=== PATIENT | female | born 1940 | race African-American/Black ===

== ENCOUNTER 2017-06-04 15:33 | Day surgery (SDC) | payer MEDICARE, MEDICAID ==
[2017-06-04 15:46] VITALS: BP 142/65; TEMP 97.9
[2017-06-04] MEDS ORDERED: Epoetin (ESRD) 20,000 UNITS/ML SC SCH (16:00)
== END 2017-06-04 16:14 | disposition home or self-care (01) ==
LOC: ONC/OP 15:33
PROVIDERS: ATTEND Internal Medicine Medical Oncology
DX: D63.1 Anemia in chronic kidney disease (principal); N18.3 Chronic kidney disease, stage 3 (moderate); I13.0 Hypertensive heart and chronic kidney disease with heart failure and stage 1 through stage 4 chronic kidney disease, or unspecified chronic kidney disease; E11.22 Type 2 diabetes mellitus with diabetic chronic kidney disease; I50.32 Chronic diastolic (congestive) heart failure; M32.9 Systemic lupus erythematosus, unspecified; E78.00 Pure hypercholesterolemia, unspecified; Z79.899 Other long term (current) drug therapy; Z79.82 Long term (current) use of aspirin; Z79.4 Long term (current) use of insulin
CPT/HCPCS: 96372; Q4081

== ENCOUNTER 2017-06-25 13:55 | Day surgery (SDC) | payer MEDICARE, MEDICAID ==
[2017-06-25 14:15] VITALS: BP 172/76; TEMP 98.1
[2017-06-25] MEDS ORDERED: Epoetin (NON-ESRD) 20,000 UNITS/ML ML SC SCH (14:15)
== END 2017-06-25 14:17 | disposition home or self-care (01) ==
LOC: ONC/OP 13:55
PROVIDERS: ATTEND Internal Medicine Medical Oncology
DX: E11.22 Type 2 diabetes mellitus with diabetic chronic kidney disease (principal); I13.0 Hypertensive heart and chronic kidney disease with heart failure and stage 1 through stage 4 chronic kidney disease, or unspecified chronic kidney disease; N18.3 Chronic kidney disease, stage 3 (moderate); I50.30 Unspecified diastolic (congestive) heart failure; D63.1 Anemia in chronic kidney disease; E03.9 Hypothyroidism, unspecified; M32.9 Systemic lupus erythematosus, unspecified; Z79.82 Long term (current) use of aspirin; Z79.4 Long term (current) use of insulin; Z79.52 Long term (current) use of systemic steroids; Z79.899 Other long term (current) drug therapy; Z98.890 Other specified postprocedural states
CPT/HCPCS: 96372; J0885

== ENCOUNTER 2017-08-05 14:08 | Day surgery (SDC) | payer MEDICARE, MEDICAID ==
[2017-08-05] MEDS ORDERED: Epoetin (ESRD) 20,000 UNITS/ML SC SCH (14:45)
[2017-08-05 14:54] VITALS: BP 169/77; TEMP 97.6
== END 2017-08-05 14:41 | disposition home or self-care (01) ==
LOC: ONC/OP 14:08
PROVIDERS: ATTEND Internal Medicine Medical Oncology
DX: E11.22 Type 2 diabetes mellitus with diabetic chronic kidney disease (principal); I13.0 Hypertensive heart and chronic kidney disease with heart failure and stage 1 through stage 4 chronic kidney disease, or unspecified chronic kidney disease; I50.32 Chronic diastolic (congestive) heart failure; N18.3 Chronic kidney disease, stage 3 (moderate); D63.1 Anemia in chronic kidney disease
CPT/HCPCS: 96372; Q4081

== ENCOUNTER 2017-09-03 14:54 | Day surgery (SDC) | payer MEDICARE, MEDICAID ==
[2017-09-03 15:13] VITALS: BP 145/67; TEMP 98
[2017-09-03] MEDS ORDERED: Epoetin (ESRD) 20,000 UNITS/ML SC SCH (15:15)
== END 2017-09-03 16:09 | disposition home or self-care (01) ==
LOC: ONC/OP 14:54
PROVIDERS: ATTEND Internal Medicine Medical Oncology
DX: N18.3 Chronic kidney disease, stage 3 (moderate) (principal); D63.1 Anemia in chronic kidney disease
CPT/HCPCS: 36415; 82728; 83540; 83550; 96372; Q4081

== ENCOUNTER 2017-09-24 14:43 | Day surgery (SDC) | payer MEDICARE, MEDICAID ==
[2017-09-24] MEDS ORDERED: Epoetin (ESRD) 20,000 UNITS/ML SC SCH (15:00)
== END 2017-09-24 15:12 | disposition home or self-care (01) ==
LOC: ONC/OP 14:43
PROVIDERS: ATTEND Internal Medicine Medical Oncology
DX: I12.9 Hypertensive chronic kidney disease with stage 1 through stage 4 chronic kidney disease, or unspecified chronic kidney disease (principal); E11.22 Type 2 diabetes mellitus with diabetic chronic kidney disease; N18.3 Chronic kidney disease, stage 3 (moderate); D63.1 Anemia in chronic kidney disease; M32.9 Systemic lupus erythematosus, unspecified; E78.00 Pure hypercholesterolemia, unspecified; E89.0 Postprocedural hypothyroidism; Z98.890 Other specified postprocedural states
CPT/HCPCS: 96372; Q4081

== ENCOUNTER 2017-10-14 14:13 | Day surgery (SDC) | payer MEDICARE, MEDICAID ==
[2017-10-14 14:30] VITALS: BP 126/61; TEMP 97.5
[2017-10-14] MEDS ORDERED: Epoetin (ESRD) 20,000 UNITS/ML SC SCH (14:30)
== END 2017-10-14 14:47 | disposition home or self-care (01) ==
LOC: ONC/OP 14:13
PROVIDERS: ATTEND Internal Medicine Medical Oncology
DX: I13.2 Hypertensive heart and chronic kidney disease with heart failure and with stage 5 chronic kidney disease, or end stage renal disease (principal); E11.22 Type 2 diabetes mellitus with diabetic chronic kidney disease; I50.9 Heart failure, unspecified; N18.6 End stage renal disease; D63.1 Anemia in chronic kidney disease; E03.9 Hypothyroidism, unspecified; E78.5 Hyperlipidemia, unspecified; Z79.4 Long term (current) use of insulin; Z79.82 Long term (current) use of aspirin; Z79.899 Other long term (current) drug therapy; Z99.2 Dependence on renal dialysis
CPT/HCPCS: 96372; Q4081

== ENCOUNTER 2017-11-04 13:50 | Day surgery (SDC) | payer MEDICARE, MEDICAID ==
[2017-11-04] MEDS ORDERED: Epoetin (ESRD) 20,000 UNITS/ML SC SCH (14:15)
== END 2017-11-04 14:37 | disposition home or self-care (01) ==
LOC: ONC/OP 13:50
PROVIDERS: ATTEND Internal Medicine Medical Oncology
DX: I12.0 Hypertensive chronic kidney disease with stage 5 chronic kidney disease or end stage renal disease (principal); E11.22 Type 2 diabetes mellitus with diabetic chronic kidney disease; N18.6 End stage renal disease; E03.9 Hypothyroidism, unspecified
CPT/HCPCS: 96372; Q4081

== ENCOUNTER 2017-12-02 14:25 | Day surgery (SDC) | payer MEDICARE, MEDICAID ==
[2017-12-02 14:37] VITALS: BP 161/71; TEMP 97.9
[2017-12-02] MEDS ORDERED: Epoetin 40,000 UNITS/ML VIAL ONE (14:42)
[2017-12-02] MEDS ORDERED: Epoetin 40,000 UNITS/ML VIAL SC SCH (15:15)
== END 2017-12-02 14:43 | disposition home or self-care (01) ==
LOC: ONC/OP 14:25
PROVIDERS: ATTEND Internal Medicine Medical Oncology
DX: I13.0 Hypertensive heart and chronic kidney disease with heart failure and stage 1 through stage 4 chronic kidney disease, or unspecified chronic kidney disease (principal); E11.22 Type 2 diabetes mellitus with diabetic chronic kidney disease; N18.3 Chronic kidney disease, stage 3 (moderate); I50.33 Acute on chronic diastolic (congestive) heart failure; D63.1 Anemia in chronic kidney disease; M32.9 Systemic lupus erythematosus, unspecified; Z79.82 Long term (current) use of aspirin; Z79.4 Long term (current) use of insulin; Z79.52 Long term (current) use of systemic steroids; Z79.899 Other long term (current) drug therapy
CPT/HCPCS: 96372; J0885

== ENCOUNTER 2017-12-23 14:13 | Day surgery (SDC) | payer MEDICARE, MEDICAID ==
[2017-12-23 14:20] VITALS: BP 161/71; TEMP 97.8
[2017-12-23] MEDS ORDERED: Epoetin 40,000 UNITS/ML VIAL SC SCH (14:30)
== END 2017-12-23 14:23 | disposition home or self-care (01) ==
LOC: ONC/OP 14:13
PROVIDERS: ATTEND Internal Medicine Medical Oncology
DX: I12.9 Hypertensive chronic kidney disease with stage 1 through stage 4 chronic kidney disease, or unspecified chronic kidney disease (principal); E11.22 Type 2 diabetes mellitus with diabetic chronic kidney disease; N18.3 Chronic kidney disease, stage 3 (moderate); D63.1 Anemia in chronic kidney disease; E03.9 Hypothyroidism, unspecified; E78.5 Hyperlipidemia, unspecified
CPT/HCPCS: 36415; 82728; 96372; J0885

== ENCOUNTER 2018-01-02 07:03 | Emergency (ER) | payer MEDICARE, MEDICAID ==
--- NOTE | 2018-01-02 08:06 | CT ---
BRAIN CT WITHOUT IV CONTRAST: Date: 01/02/18 HISTORY: 77-year-old female with history of trauma, fell while using walker, fell straight backward. Soft tiss ue injury to back of patient's head. COMPARISON: 05/15/16. FINDINGS: Stable appearing atrophy and chronic white matter ischemic change. No focal mass or midline shift. No intra or extra-axial hemorrhage. Left posterior scalp swelling. IMPRESSION: Scalp swelling. Stable atrophy and chronic white matter ischemic change. No mass or bleed. POS: [facility]
[2018-01-02] MEDS ORDERED: Bacitracin Zinc 1 Packet ONE (08:23)
== END 2018-01-02 08:35 | disposition home or self-care (01) ==
LOC: ERS 07:03
DX: S00.03XA Contusion of scalp, initial encounter (principal); E78.00 Pure hypercholesterolemia, unspecified; E03.9 Hypothyroidism, unspecified; W01.0XXA Fall on same level from slipping, tripping and stumbling without subsequent striking against object, initial encounter; Y93.01 Activity, walking, marching and hiking
CPT/HCPCS: 70450

== ENCOUNTER 2018-01-07 15:26 | Outpatient (CLI) | payer MEDICARE, MEDICAID | END 2018-01-07 15:27 | disposition home or self-care (01) | LOC: BICMAMMO 15:26 | PROVIDERS: ATTEND Family Medicine | DX: Z12.31 Encounter for screening mammogram for malignant neoplasm of breast (principal); Z80.3 Family history of malignant neoplasm of breast | CPT/HCPCS: 77063; 77067 ==

== ENCOUNTER 2018-01-13 14:03 | Day surgery (SDC) | payer MEDICARE, MEDICAID ==
[2018-01-13] MEDS ORDERED: Epoetin 40,000 UNITS/ML VIAL ONE (14:13)
[2018-01-13 14:22] VITALS: BP 132/62; TEMP 97.5
[2018-01-13] MEDS ORDERED: Epoetin 40,000 UNITS/ML VIAL SC SCH (14:30)
== END 2018-01-13 14:22 | disposition home or self-care (01) ==
LOC: ONC/OP 14:03
PROVIDERS: ATTEND Internal Medicine Medical Oncology
DX: I12.9 Hypertensive chronic kidney disease with stage 1 through stage 4 chronic kidney disease, or unspecified chronic kidney disease (principal); E11.22 Type 2 diabetes mellitus with diabetic chronic kidney disease; N18.3 Chronic kidney disease, stage 3 (moderate); D63.1 Anemia in chronic kidney disease; E03.9 Hypothyroidism, unspecified; E78.5 Hyperlipidemia, unspecified; Z98.890 Other specified postprocedural states
CPT/HCPCS: 96372; J0885

== ENCOUNTER 2018-02-03 14:00 | Day surgery (SDC) | payer MEDICARE, MEDICAID ==
[2018-02-03] MEDS ORDERED: Epoetin 40,000 UNITS/ML VIAL SC SCH (14:15)
[2018-02-03 14:16] VITALS: BP 162/72; TEMP 97.6
[2018-02-03] MEDS ORDERED: Epoetin 40,000 UNITS/ML VIAL ONE (14:21)
== END 2018-02-03 14:17 | disposition home or self-care (01) ==
LOC: ONC/OP 14:00
PROVIDERS: ATTEND Internal Medicine Medical Oncology
DX: I12.9 Hypertensive chronic kidney disease with stage 1 through stage 4 chronic kidney disease, or unspecified chronic kidney disease (principal); E11.22 Type 2 diabetes mellitus with diabetic chronic kidney disease; N18.3 Chronic kidney disease, stage 3 (moderate); D63.1 Anemia in chronic kidney disease; E03.9 Hypothyroidism, unspecified; E78.5 Hyperlipidemia, unspecified; Z79.84 Long term (current) use of oral hypoglycemic drugs; Z79.899 Other long term (current) drug therapy
CPT/HCPCS: 96372; J0885

== ENCOUNTER 2018-02-24 14:03 | Day surgery (SDC) | payer MEDICARE, MEDICAID ==
[2018-02-24] MEDS ORDERED: Epoetin 40,000 UNITS/ML VIAL SC SCH (14:30)
[2018-02-24 16:01] VITALS: BP 134/61; TEMP 98.1
== END 2018-02-24 16:07 | disposition home or self-care (01) ==
LOC: ONC/OP 14:03
PROVIDERS: ATTEND Internal Medicine Medical Oncology
DX: N18.3 Chronic kidney disease, stage 3 (moderate) (principal); D63.1 Anemia in chronic kidney disease
CPT/HCPCS: 96372; J0885

== ENCOUNTER 2018-03-24 12:25 | Day surgery (SDC) | payer MEDICARE, MEDICAID ==
[2018-03-24] MEDS ORDERED: Epoetin 40,000 UNITS/ML VIAL ONE (12:34)
[2018-03-24 14:01] VITALS: BP 133/63; TEMP 97.7
== END 2018-03-24 14:18 | disposition home or self-care (01) ==
LOC: ONC/OP 12:25
PROVIDERS: ATTEND Internal Medicine Medical Oncology
DX: I12.9 Hypertensive chronic kidney disease with stage 1 through stage 4 chronic kidney disease, or unspecified chronic kidney disease (principal); E11.22 Type 2 diabetes mellitus with diabetic chronic kidney disease; N18.3 Chronic kidney disease, stage 3 (moderate); D63.1 Anemia in chronic kidney disease; I25.10 Atherosclerotic heart disease of native coronary artery without angina pectoris; L93.0 Discoid lupus erythematosus; E78.2 Mixed hyperlipidemia; E03.9 Hypothyroidism, unspecified; Z79.899 Other long term (current) drug therapy
CPT/HCPCS: 96372; J0885

== ENCOUNTER 2018-04-14 13:19 | Day surgery (SDC) | payer MEDICARE, MEDICAID ==
[2018-04-14] MEDS ORDERED: Epoetin 40,000 UNITS/ML VIAL SC SCH (13:30)
[2018-04-14 14:14] VITALS: BP 138/91; TEMP 97.9
== END 2018-04-14 14:49 | disposition home or self-care (01) ==
LOC: ONC/OP 13:19
PROVIDERS: ATTEND Internal Medicine Medical Oncology
DX: N18.3 Chronic kidney disease, stage 3 (moderate) (principal); D63.1 Anemia in chronic kidney disease
CPT/HCPCS: 96372; J0885

== ENCOUNTER 2018-05-05 13:47 | Day surgery (SDC) | payer MEDICARE, MEDICAID ==
[2018-05-05] MEDS ORDERED: Epoetin 40,000 UNITS/ML VIAL SC SCH (14:15)
== END 2018-05-05 14:29 | disposition home or self-care (01) ==
LOC: ONC/OP 13:47
PROVIDERS: ATTEND Internal Medicine Medical Oncology
DX: N18.3 Chronic kidney disease, stage 3 (moderate) (principal); D63.1 Anemia in chronic kidney disease
CPT/HCPCS: 96372; J0885

== ENCOUNTER 2018-05-26 14:10 | Day surgery (SDC) | payer MEDICARE, MEDICAID ==
[2018-05-26] MEDS ORDERED: Epoetin 40,000 UNITS/ML VIAL SC SCH (14:30)
== END 2018-05-26 15:09 | disposition home or self-care (01) ==
LOC: ONC/OP 14:10
PROVIDERS: ATTEND Internal Medicine Medical Oncology
DX: N18.3 Chronic kidney disease, stage 3 (moderate) (principal); D63.1 Anemia in chronic kidney disease
CPT/HCPCS: 96372; J0885

== ENCOUNTER 2018-06-05 09:32 | Outpatient (CLI) | payer MEDICARE, MEDICAID ==
--- NOTE | 2018-06-05 13:03 | MRI ---
MRI BRAIN WITHOUT CONTRAST: Date: 06/05/18 HISTORY: Hypersomnia, unspecified; dizziness and giddiness. FINDINGS: Comparison made with exam of 03/28/16. There are changes of cortical atrophy and mild chronic small vessel ischemic disease. No restricted d iffusion is seen. No evidence of territorial infarction, midline shift, or abnormal extra-axial fluid collections are seen. The ventricular size is appropriate and the basilar cisterns are patent. Visua lized paranasal sinuses and mastoid air cells are well aerated. IMPRESSION: Chronic changes. No evidence of acute intracranial process. POS: [facility]
== END 2018-06-05 09:33 | disposition home or self-care (01) ==
LOC: BICMRI 09:32
PROVIDERS: ATTEND Family Medicine
DX: G47.10 Hypersomnia, unspecified (principal); R42 Dizziness and giddiness
CPT/HCPCS: 70551

== ENCOUNTER 2018-06-22 17:31 | Emergency (ER) | payer MEDICARE, MEDICAID ==
[2018-06-22 18:08] LABS: #Basophils 0.1 thou/uL (0.0-0.2); #Eosinphils 0.1 thou/uL (0.0-0.7); #Lymphocytes 2.4 thou/uL (1.20-3.40); #Monocytes 0.7 thou/uL (0.11-0.59); #Neutrophils 4.4 thou/uL (1.40-6.50); %Basophils 0.8 % (0.0-1.0); %Eosinophils 1.9 % (0.0-10.0); %Lymphocytes 31.4 % (21.0-51.0); %Monocytes 9.2 % (0.0-10.0); %Neutrophils 56.7 % (42.0-75.0); Hemoglobin 11.5 g/dL (12.0-16.0); Mean Corpuscular HGB CONC 31.2 g/dL (32.0-36.0); Mean Corpuscular Hemoglobin 27.3 pg (27.0-31.0); Mean Corpuscular Volume 87.5 fL (78.0-98.0); Mean Platelet Volume 8.3 fL (7.4-10.4); Platelet Count 235 thou/uL (130-400); RBC Distribution Width 13.8 % (11.5-14.5); Red Blood Cell (RBC) Count 4.19 mill/uL (4.20-5.40); White Blood Cell (WBC) Count 7.7 thou/uL (4.8-10.8)
[2018-06-22 18:29] LABS: ALT (SGPT) 19 U/L (8-55); AST (SGOT) 15 U/L (5-34); Albumin 3.9 g/dL (3.4-4.8); Alkaline Phosphatase 55 U/L (40-150); Anion Gap 15 mmol/L (10-20); BUN (Urea Nitrogen) 41 mg/dL (9.8-20.1); Bilirubin, Total 0.4 mg/dL (0.2-1.2); CK (CPK) 100 U/L (29-168); Calc. Creatinine Clearance 0 mL/min (70-130); Calcium 9.2 mg/dL (7.8-10.44); Carbon Dioxide 20 mmol/L (23-31); Chloride 106 mmol/L (98-107); Estimated GFR-MDRD 24; Globulin 3.5 g/dL (2.4-3.5); Glucose 140 mg/dL (83-110); Potassium 4.5 mmol/L (3.5-5.1); Protein, Total 7.4 g/dL (6.0-8.3); Sodium 136 mmol/L (136-145)
[2018-06-22 18:34] LABS: CKMB 0.9 ng/mL (0-6.6); Troponin I Less than 0.010 ng/mL (< 0.028)
[2018-06-22 18:38] LABS: Bilirubin Negative (Negative); Blood, Urine Trace (Negative); Clarity CLEAR (Clear); Glucose, Urine (Dipstick) Negative (Negative); Leukocyte Negative (Negative); Nitrite Negative (Negative); Protein, Urine (Dipstick) 100 mg/dL (Neg-Trace); Specific Gravity, Urine 1.007 (1.002-1.036); Urobilinogen 0.2 mg/dL (0.2-1.0)
[2018-06-22 18:44] LABS: Bacteria/HPF None Seen HPF (None Seen); Hyaline Casts/LPF 0-3 HYALINE CAST LPF (0-3 Hyaline); Pathc Cast-AUWi Flag 0.14 (0-2.49); Squamous Epithelial 0-3 HPF (0-3); WBC/HPF 0-3 HPF (0-3)
== END 2018-06-22 19:28 | disposition home or self-care (01) ==
LOC: ERS 17:31
DX: I12.9 Hypertensive chronic kidney disease with stage 1 through stage 4 chronic kidney disease, or unspecified chronic kidney disease (principal); N18.9 Chronic kidney disease, unspecified; E11.9 Type 2 diabetes mellitus without complications; E03.9 Hypothyroidism, unspecified; Z79.899 Other long term (current) drug therapy
CPT/HCPCS: 36415; 80053; 81003; 81015; 82550; 82553; 83880; 84484; 85025; 93005

== ENCOUNTER 2018-07-07 13:46 | Day surgery (SDC) | payer MEDICARE, MEDICAID ==
[2018-07-07] MEDS ORDERED: Epoetin 40,000 UNITS/ML VIAL SC SCH (14:00)
== END 2018-07-07 14:24 | disposition home or self-care (01) ==
LOC: ONC/OP 13:46
PROVIDERS: ATTEND Internal Medicine Medical Oncology
DX: N18.3 Chronic kidney disease, stage 3 (moderate) (principal); D63.1 Anemia in chronic kidney disease; Z79.52 Long term (current) use of systemic steroids; Z79.82 Long term (current) use of aspirin; Z79.899 Other long term (current) drug therapy
CPT/HCPCS: 96372; J0885

== ENCOUNTER 2018-07-28 14:01 | Day surgery (SDC) | payer MEDICARE ==
[2018-07-28] MEDS ORDERED: Epoetin 40,000 UNITS/ML VIAL SC SCH (14:30)
== END 2018-07-28 14:41 | disposition home or self-care (01) ==
LOC: ONC/OP 14:01
PROVIDERS: ATTEND Internal Medicine Medical Oncology
DX: N18.3 Chronic kidney disease, stage 3 (moderate) (principal); D63.1 Anemia in chronic kidney disease
CPT/HCPCS: 96372; J0885

== ENCOUNTER 2018-08-18 14:18 | Day surgery (SDC) | payer MEDICARE ==
[2018-08-18] MEDS ORDERED: Epoetin 40,000 UNITS/ML VIAL SC SCH (15:00)
[2018-08-18 17:04] VITALS: BP 165/72; TEMP 97.7
== END 2018-08-18 17:04 | disposition home or self-care (01) ==
LOC: ONC/OP 14:18
PROVIDERS: ATTEND Internal Medicine Medical Oncology
DX: N18.3 Chronic kidney disease, stage 3 (moderate) (principal); D63.1 Anemia in chronic kidney disease; Z79.82 Long term (current) use of aspirin; Z79.52 Long term (current) use of systemic steroids; Z79.899 Other long term (current) drug therapy
CPT/HCPCS: 96372; J0885

== ENCOUNTER 2018-09-15 13:55 | Day surgery (SDC) | payer MEDICARE, MEDICAID ==
[2018-09-15] MEDS ORDERED: Epoetin 40,000 UNITS/ML VIAL ONE (13:58)
[2018-09-15 14:02] VITALS: BP 138/63; TEMP 98.4
== END 2018-09-15 14:24 | disposition home or self-care (01) ==
LOC: ONC/OP 13:55
PROVIDERS: ATTEND Internal Medicine Medical Oncology
DX: N18.3 Chronic kidney disease, stage 3 (moderate) (principal); D63.1 Anemia in chronic kidney disease
CPT/HCPCS: 36415; 82728; 83540; 83550; 96372; J0885

== ENCOUNTER 2018-10-06 14:37 | Day surgery (SDC) | payer MEDICARE, MEDICAID ==
[2018-10-06 15:09] VITALS: BP 154/72; TEMP 97.8
[2018-10-06] MEDS ORDERED: Epoetin 40,000 UNITS/ML VIAL SC SCH (15:30)
--- NOTE | 2018-10-06 16:25 | RAD ---
TWO VIEW CHEST: History: Anemia. FINDINGS: Lung webster are clear. Heart and mediastinum appear unremarkable. Mild aortic calcification. Vascular markings normal. Osseous structures unremarkable with mild degenerative changes at both shoulders. T here is a wedge compression deformity involving a lower thoracic vertebra, probably T12. IMPRESSION: 1. No acute lung process. 2. Wedge compression deformity at T12. 3. Degenerative changes at the shoulder, more prominent on the left. POS: [facility]
== END 2018-10-06 18:33 | disposition home or self-care (01) ==
LOC: ONC/OP 14:37
PROVIDERS: ATTEND Internal Medicine Medical Oncology
DX: N18.3 Chronic kidney disease, stage 3 (moderate) (principal); D63.1 Anemia in chronic kidney disease; M19.012 Primary osteoarthritis, left shoulder; M19.011 Primary osteoarthritis, right shoulder; M43.8X4 Other specified deforming dorsopathies, thoracic region; Z79.82 Long term (current) use of aspirin; Z79.52 Long term (current) use of systemic steroids; Z79.84 Long term (current) use of oral hypoglycemic drugs; Z79.899 Other long term (current) drug therapy
CPT/HCPCS: 71046; 80053; 82248; 83615; 84100; 84550; 96372; J0885

== ENCOUNTER 2018-10-29 15:57 | Day surgery (SDC) | payer MEDICARE, MEDICAID ==
[2018-10-29] MEDS ORDERED: Epoetin 40,000 UNITS/ML VIAL SC SCH (16:15)
== END 2018-10-29 16:28 | disposition home or self-care (01) ==
LOC: ONC/OP 15:57
PROVIDERS: ATTEND Internal Medicine Medical Oncology
DX: N18.3 Chronic kidney disease, stage 3 (moderate) (principal); D63.1 Anemia in chronic kidney disease
CPT/HCPCS: 80053; 82248; 83615; 84100; 84550; 96372; J0885

== ENCOUNTER 2018-11-19 13:50 | Day surgery (SDC) | payer MEDICARE, MEDICAID ==
[2018-11-19] MEDS ORDERED: Epoetin 40,000 UNITS/ML VIAL ONE (13:53)
[2018-11-19] MEDS ORDERED: Epoetin 40,000 UNITS/ML VIAL SC SCH (14:30)
== END 2018-11-19 14:05 | disposition home or self-care (01) ==
LOC: ONC/OP 13:50
PROVIDERS: ATTEND Internal Medicine Medical Oncology
DX: N18.3 Chronic kidney disease, stage 3 (moderate) (principal); D63.1 Anemia in chronic kidney disease
CPT/HCPCS: 96372; J0885

== ENCOUNTER 2018-12-15 14:21 | Day surgery (SDC) | payer MEDICARE, MEDICAID ==
[2018-12-15] MEDS ORDERED: Epoetin 40,000 UNITS/ML VIAL SC SCH (14:30)
[2018-12-15 14:48] VITALS: BP 134/63
== END 2018-12-15 14:48 | disposition home or self-care (01) ==
LOC: ONC/OP 14:21
PROVIDERS: ATTEND Internal Medicine Medical Oncology
DX: N18.3 Chronic kidney disease, stage 3 (moderate) (principal); D63.1 Anemia in chronic kidney disease; Z79.52 Long term (current) use of systemic steroids; Z79.4 Long term (current) use of insulin; Z79.82 Long term (current) use of aspirin
CPT/HCPCS: 96372; J0885

== ENCOUNTER 2018-12-21 10:58 | Outpatient (CLI) | payer MEDICARE, MEDICAID | END 2018-12-21 10:59 | disposition home or self-care (01) | PROVIDERS: ATTEND Family Medicine | DX: I69.891 Dysphagia following other cerebrovascular disease (principal); R13.12 Dysphagia, oropharyngeal phase | CPT/HCPCS: 74230 ==

== ENCOUNTER 2018-12-21 14:12 | Outpatient (CLI) | payer MEDICARE, MEDICAID ==
--- NOTE | 2018-12-21 15:33 | MMO ---
Bilateral MAMMO Bilat Diag DDI+JOLENE. CLINICAL HISTORY: Patient is 78 years old and is seen for diagnostic exam and in the right breast. The patient has the following family history of breast cancer: paternal aunt. The patient has no personal history of cancer. The patient has a history of bilateral Excisional Biopsy at age 46 - benign. VIEWS: The views performed were: bilateral craniocaudal with tomosynthesis; bilateral mediolateral oblique with tomosynthesis; bilateral mediolateral; left mediolateral oblique; and right exaggerated craniocaudal. FILMS COMPARED: The present examination has been compared to prior imaging studies performed at [facility] on 12/09/2007, 12/16/2007, 12/16/2008, 12/18/2009, 12/23/2011, 12/23/2012, 12/24/2013, 12/26/2014, 12/28/2014, 07/26/2015, 01/05/2016, 01/06/2017, 01/07/2018 and 12/21/2018, and at [facility] on 12/30/2001 and 09/30/2003. MAMMOGRAM FINDINGS: There are scattered fibroglandular densities. Finding 1: There are a stable round masses with associated coarse popcorn-like calcifications seen in the right breast. Ultrasound shows masses with calcifications in region of palpable abnormality. Finding 2: There are stable benign appearing calcifications seen in both breasts. Finding 3: There is a stable mass seen in the left breast. There are no suspicious masses, suspicious calcifications, or new areas of architectural distortion. IMPRESSION: THERE IS NO MAMMOGRAPHIC EVIDENCE OF MALIGNANCY. A ROUTINE FOLLOW-UP MAMMOGRAM IN 1 YEAR IS RECOMMENDED. 3BTHE RESULTS OF THIS EXAM WERE SENT TO THE PATIENT.0B ACR BI-RADS Category 2 - Benign finding MAMMOGRAPHY NOTE: 1. A negative mammogram report should not delay a biopsy if a dominant of clinically suspicious mass is present. 2. Approximately 10% to 15% of breast cancers are not detected by mammography. 3. Adenosis and dense breasts may obscure an underlying neoplasm.
--- NOTE | 2018-12-21 15:57 | ULT ---
LIMITED ULTRASOUND RIGHT BREAST: Date: 12-21-18 History: Palpable abnormalities right breast. Patient with recent history of weight loss. Comparison: Mammograms on 12-21-18, as well as 01-06-17 in addition to multiple prior mammograms. FINDINGS: There are hypoechoic masses with associated echogenic shadowing foci within each mass most compatible with calcifications seen at the 10 o'clock position right breast. The more posterior mass measures 1.5 cm in maximal dimension with mass more anteriorly measuring approximately 1.4 cm in maximal dimen june. These masses, with associated calcifications correlate with findings on mammogram. Findings on mammographic evaluation are unchanged when compared to multiple prior mammograms suggesting benign fi ndings. No additional mass is seen in the region of the palpable abnormality. IMPRESSION: BIRADS category 2 - benign findings. Routine annual mammographic screening is recommended. POS: [facility]
== END 2018-12-21 14:13 | disposition home or self-care (01) ==
LOC: BICMAMMO 14:12
PROVIDERS: ATTEND Family Medicine
DX: N63.10 Unspecified lump in the right breast, unspecified quadrant (principal); Z80.3 Family history of malignant neoplasm of breast
CPT/HCPCS: 76642; 77066; G0279

== ENCOUNTER 2019-01-07 15:05 | Day surgery (SDC) | payer MEDICARE, MEDICAID ==
[2019-01-07] MEDS ORDERED: EPOETIN ALFA-EPBX (ESRD) 40,000 UNIT/ML VIAL SC SCH (15:30)
[2019-01-07 15:32] VITALS: BP 192/86; TEMP 97.4
== END 2019-01-07 15:33 | disposition home or self-care (01) ==
LOC: ONC/OP 15:05
PROVIDERS: ATTEND Internal Medicine Medical Oncology
DX: N18.3 Chronic kidney disease, stage 3 (moderate) (principal); D63.1 Anemia in chronic kidney disease
CPT/HCPCS: 82728; 96372

== ENCOUNTER 2019-01-27 14:04 | Day surgery (SDC) | payer MEDICARE, MEDICAID ==
[2019-01-27] MEDS ORDERED: Epoetin 40,000 UNITS/ML VIAL ONE (14:10)
[2019-01-27 14:13] VITALS: BP 125/60; TEMP 97.8
[2019-01-27] MEDS ORDERED: EPOETIN ALFA-EPBX (ESRD) 40,000 UNIT/ML VIAL SC SCH (14:15)
[2019-01-27] MEDS ORDERED: EPOETIN ALFA-EPBX (ESRD) 40,000 UNIT/ML VIAL IVP ONE (14:58)
== END 2019-01-27 16:24 | disposition home or self-care (01) ==
LOC: ONC/OP 14:04
PROVIDERS: ATTEND Internal Medicine Medical Oncology
DX: N18.3 Chronic kidney disease, stage 3 (moderate) (principal); D63.1 Anemia in chronic kidney disease
CPT/HCPCS: 96372; J0885

== ENCOUNTER 2019-02-16 13:55 | Day surgery (SDC) | payer MEDICARE, MEDICAID ==
[2019-02-16 14:09] VITALS: BP 136/62; TEMP 97.5
[2019-02-16] MEDS ORDERED: EPOETIN ALFA-EPBX (NON-ESRD) 40,000 UNIT/ML VIAL SC SCH (14:15)
[2019-02-16] MEDS ORDERED: EPOETIN ALFA-EPBX (ESRD) 40,000 UNIT/ML VIAL SC SCH (14:30)
== END 2019-02-16 14:53 | disposition home or self-care (01) ==
LOC: ONC/OP 13:55
PROVIDERS: ATTEND Internal Medicine Medical Oncology
DX: N18.3 Chronic kidney disease, stage 3 (moderate) (principal); D63.1 Anemia in chronic kidney disease
CPT/HCPCS: 96372

== ENCOUNTER 2019-03-09 14:29 | Day surgery (SDC) | payer MEDICARE, MEDICAID ==
[2019-03-09] MEDS ORDERED: EPOETIN ALFA-EPBX (ESRD) 40,000 UNIT/ML VIAL ONE (14:41)
[2019-03-09] MEDS ORDERED: EPOETIN ALFA-EPBX (ESRD) 40,000 UNIT/ML VIAL SC SCH (14:45)
[2019-03-09 14:55] VITALS: BP 145/67; TEMP 98
== END 2019-03-09 16:06 | disposition home or self-care (01) ==
LOC: ONC/OP 14:29
PROVIDERS: ATTEND Internal Medicine Medical Oncology
DX: N18.3 Chronic kidney disease, stage 3 (moderate) (principal); D63.1 Anemia in chronic kidney disease; Z79.82 Long term (current) use of aspirin; Z79.899 Other long term (current) drug therapy
CPT/HCPCS: 96372; Q5105

== ENCOUNTER 2019-04-20 13:55 | Day surgery (SDC) | payer MEDICARE, MEDICAID ==
[2019-04-20] MEDS ORDERED: EPOETIN ALFA-EPBX (ESRD) 40,000 UNIT/ML VIAL ONE (14:04)
[2019-04-20 14:05] VITALS: BP 129/60
[2019-04-20] MEDS ORDERED: EPOETIN ALFA-EPBX (ESRD) 40,000 UNIT/ML VIAL SC SCH (15:00)
== END 2019-04-20 14:15 | disposition home or self-care (01) ==
LOC: ONC/OP 13:55
PROVIDERS: ATTEND Internal Medicine Medical Oncology
DX: N18.3 Chronic kidney disease, stage 3 (moderate) (principal); D63.1 Anemia in chronic kidney disease
CPT/HCPCS: 96372; Q5105

== ENCOUNTER 2019-05-12 14:07 | Day surgery (SDC) | payer MEDICARE, MEDICAID ==
[2019-05-12] MEDS ORDERED: EPOETIN ALFA-EPBX (NON-ESRD) 40,000 UNIT/ML VIAL SC SCH (14:30)
[2019-05-12] MEDS ORDERED: EPOETIN ALFA-EPBX (ESRD) 40,000 UNIT/ML VIAL SC SCH (15:00)
== END 2019-05-12 15:03 | disposition home or self-care (01) ==
LOC: ONC/OP 14:07
PROVIDERS: ATTEND Internal Medicine Medical Oncology
DX: N18.3 Chronic kidney disease, stage 3 (moderate) (principal); D63.1 Anemia in chronic kidney disease
CPT/HCPCS: 96372; Q5106

== ENCOUNTER 2019-06-02 14:16 | Day surgery (SDC) | payer MEDICARE, MEDICAID ==
[2019-06-02] MEDS ORDERED: EPOETIN ALFA-EPBX (ESRD) 40,000 UNIT/ML VIAL SC SCH (14:30)
== END 2019-06-02 14:29 | disposition home or self-care (01) ==
LOC: ONC/OP 14:16
PROVIDERS: ATTEND Internal Medicine Medical Oncology
DX: N18.3 Chronic kidney disease, stage 3 (moderate) (principal); D63.1 Anemia in chronic kidney disease
CPT/HCPCS: 82728; 83540; 83550; 96372; Q5105

== ENCOUNTER 2019-07-05 10:46 | Outpatient (CLI) | payer MEDICARE, MEDICAID ==
--- NOTE | 2019-07-06 11:11 | RAD ---
Modified barium swallow HISTORY: Dysphagia. Feeding difficulties. FINDINGS: Exam was performed by speech pathology with multiple consistencies. Video review is availab le and demonstrates poor oral control and significant early spill of some consistencies to the level of the piriform sinuses which are slightly dilated. Delay in initiation of swallowing. Due to t he delay in swallowing, there is moderate residual within the valleculae and piriform sinuses. Upon each eventual secondary swallow, there is good clearance. No significant penetration. Fluoroscopy time 55 seconds. The esophagus below the level of the hypopharynx was not evaluated. Please see separate detailed repo rt from speech pathology.
== END 2019-07-05 10:47 | disposition home or self-care (01) ==
PROVIDERS: ATTEND Internal Medicine Gastroenterology
DX: I69.191 Dysphagia following nontraumatic intracerebral hemorrhage (principal); R13.12 Dysphagia, oropharyngeal phase; R63.3 Feeding difficulties; R63.4 Abnormal weight loss; K21.9 Gastro-esophageal reflux disease without esophagitis
CPT/HCPCS: 36415; 74230; 80048; 83970; 85014; 85018

== ENCOUNTER 2019-08-02 08:30 | Emergency (ER) | payer MEDICARE, MEDICAID ==
[2019-08-02 09:13] LABS: #Eosinphils 0.1 thou/uL (0.0-0.7); #Lymphocytes 1.5 thou/uL (1.20-3.40); #Monocytes 0.5 thou/uL (0.11-0.59); #Neutrophils 6.5 thou/uL (1.40-6.50); %Basophils 0.5 % (0.0-1.0); %Eosinophils 1.6 % (0.0-10.0); %Lymphocytes 17.3 % (21.0-51.0); %Monocytes 6.1 % (0.0-10.0); %Neutrophils 74.5 % (42.0-75.0); Hemoglobin 11.6 g/dL (12.0-16.0); Mean Corpuscular HGB CONC 31.2 g/dL (32.0-36.0); Mean Corpuscular Hemoglobin 27.7 pg (27.0-31.0); Mean Corpuscular Volume 88.7 fL (78.0-98.0); Mean Platelet Volume 9.1 fL (7.4-10.4); Platelet Count 206 thou/uL (130-400); RBC Distribution Width 14.1 % (11.5-14.5); Red Blood Cell (RBC) Count 4.19 mill/uL (4.20-5.40); White Blood Cell (WBC) Count 8.7 thou/uL (4.8-10.8)
--- NOTE | 2019-08-02 09:18 | CT ---
CT Brain WO Con History: Injury Comparison: CT brain 2018 Findings: No acute hemorrhage or infarct. No midline shift or mass effect. Ventricular size and extra -axial CSF spaces are normal. Mild atrophy. Calvarium is intact. Paranasal sinuses and mastoids are clear. Impression: No acute intracranial abnormality. Chronic findings.
--- NOTE | 2019-08-02 09:26 | RAD ---
XR Chest 1 View Portable History: Injury. Comparison: None. Findings: Lungs are clear. Calcified granuloma projects over the right lower lobe. No pneumothorax. M oderate vascular calcifications. Rotator cuff arthropathy. Heart size mildly enlarged. Impression: No acute intrathoracic abnormality.
[2019-08-02 09:42] LABS: ALT (SGPT) 11 U/L (8-55); AST (SGOT) 12 U/L (5-34); Albumin 3.7 g/dL (3.4-4.8); Alkaline Phosphatase 51 U/L (40-110); Anion Gap 14 mmol/L (10-20); BUN (Urea Nitrogen) 45 mg/dL (9.8-20.1); Bilirubin, Total 0.3 mg/dL (0.2-1.2); Calc. Creatinine Clearance 0 mL/min (70-130); Carbon Dioxide 20 mmol/L (23-31); Chloride 111 mmol/L (98-107); Estimated GFR-MDRD 21; Globulin 3.5 g/dL (2.4-3.5); Glucose 162 mg/dL (83-110); Potassium 4.1 mmol/L (3.5-5.1); Protein, Total 7.2 g/dL (5.8-8.1); Sodium 141 mmol/L (136-145)
[2019-08-02] MEDS ORDERED: hydrALAZINE 25 MG TAB ONE (10:10)
[2019-08-02] MEDS ORDERED: hydrALAZINE 25 MG TAB PO SCH (10:30)
[2019-08-02] MEDS ORDERED: Losartan 25 MG TAB PO SCH (10:30)
[2019-08-02] MEDS ORDERED: Nebivolol HCl 5 MG TAB PO SCH (10:45)
[2019-08-02] MEDS ORDERED: Acetaminophen 500 MG TAB ONE (11:05)
[2019-08-02 11:13] LABS: Bilirubin Negative (Negative); Blood, Urine Negative (Negative); Clarity Clear (Clear); Glucose, Urine (Dipstick) Normal (Negative); Leukocyte 25 Leu/uL (Negative); Nitrite Negative (Negative); Protein, Urine (Dipstick) 200 mg/dL (Neg-Trace); RBC/HPF 0-3 HPF (0-3); Urobilinogen Normal mg/dL (Less than 2); WBC/HPF 0-3 HPF (0-3)
[2019-08-02 11:15] LABS: Bacteria/HPF 1+ HPF (None Seen)
--- NOTE | 2019-08-02 12:21 | RAD ---
LUMBAR SPINE SERIES 3 VIEWS: Date: 08/02/19 HISTORY: Low back pain. COMPARISON: 07/03/16 exam. FINDINGS: The lumbar vertebral bodies maintain normal height. There are compression changes involving superior and inferior end plate of T12, which were seen on the previous study. Disc spaces were all relatively well preserved. Degenerative facet changes noted. IMPRESSION: 1. Old appearing compression injury of T12. 2. Mild arthritic changes of lumbar spine. 3. Atherosclerosis. POS: [facility]
== END 2019-08-02 12:36 | disposition home or self-care (01) ==
LOC: ERS 08:30
DX: S00.03XA Contusion of scalp, initial encounter (principal); I12.9 Hypertensive chronic kidney disease with stage 1 through stage 4 chronic kidney disease, or unspecified chronic kidney disease; E11.22 Type 2 diabetes mellitus with diabetic chronic kidney disease; N18.9 Chronic kidney disease, unspecified; E78.00 Pure hypercholesterolemia, unspecified; E03.9 Hypothyroidism, unspecified; N18.6 End stage renal disease; Z79.899 Other long term (current) drug therapy; W18.30XA Fall on same level, unspecified, initial encounter
CPT/HCPCS: 36415; 70450; 71045; 72100; 80053; 81003; 81015; 84484; 85025; 93005

== ENCOUNTER 2019-09-14 21:33 | Emergency (ER) | payer MEDICARE, MEDICAID ==
--- NOTE | 2019-09-14 22:16 | CT ---
NONCONTRAST CT HEAD: 09/14/19 HISTORY: Injury after falling and hitting head. Hematoma at the back of the head with abrasion. COMPARISON: 08/02/19 FINDINGS: There is no evidence of an acute cortical infarction, hemorrhage, mass effect or midline shift. Cereb ral and cerebellar volume loss is again present. The ventricular system is normal in size, shape and position. Mild chronic small vessel ischemic changes are again present. CT of the head is overall sta ble compared to the prior exam. IMPRESSION: Stable chronic findings, but there is no evidence of an acute intracranial abnormality demonstrated. POS: [facility]
[2019-09-14 22:41] LABS: #Basophils 0.1 thou/uL (0.0-0.2); #Eosinphils 0.1 thou/uL (0.0-0.7); #Lymphocytes 1.9 thou/uL (1.20-3.40); #Monocytes 0.7 thou/uL (0.11-0.59); #Neutrophils 5.7 thou/uL (1.40-6.50); %Basophils 0.8 % (0.0-1.0); %Lymphocytes 22.5 % (21.0-51.0); %Monocytes 8.3 % (0.0-10.0); %Neutrophils 67.4 % (42.0-75.0); Hemoglobin 11.7 g/dL (12.0-16.0); Mean Corpuscular HGB CONC 31.1 g/dL (32.0-36.0); Mean Corpuscular Hemoglobin 26.6 pg (27.0-31.0); Mean Corpuscular Volume 85.4 fL (78.0-98.0); Mean Platelet Volume 9.1 fL (7.4-10.4); Platelet Count 227 thou/uL (130-400); RBC Distribution Width 14.6 % (11.5-14.5); White Blood Cell (WBC) Count 8.4 thou/uL (4.8-10.8)
[2019-09-14 23:03] LABS: ALT (SGPT) 10 U/L (8-55); AST (SGOT) 11 U/L (5-34); Albumin 3.9 g/dL (3.4-4.8); Alkaline Phosphatase 56 U/L (40-110); Anion Gap 16 mmol/L (10-20); BUN (Urea Nitrogen) 65 mg/dL (9.8-20.1); Bilirubin, Total 0.2 mg/dL (0.2-1.2); Calc. Creatinine Clearance 0 mL/min (70-130); Calcium 8.8 mg/dL (7.8-10.44); Carbon Dioxide 17 mmol/L (23-31); Chloride 108 mmol/L (98-107); Estimated GFR-MDRD 15; Globulin 3.6 g/dL (2.4-3.5); Glucose 169 mg/dL (83-110); Potassium 4.5 mmol/L (3.5-5.1); Protein, Total 7.5 g/dL (6.0-8.3); Sodium 136 mmol/L (136-145)
[2019-09-15 01:04] LABS: Bilirubin Negative (Negative); Blood, Urine Negative (Negative); Clarity Clear (Clear); Glucose, Urine (Dipstick) Normal (Negative); Leukocyte Negative Leu/uL (Negative); Nitrite Negative (Negative); Protein, Urine (Dipstick) 100 mg/dL (Neg-Trace); RBC/HPF 0-3 HPF (0-3); Squamous Epithelial 0-3 HPF (0-3); Urobilinogen Normal mg/dL (Less than 2); WBC/HPF 0-3 HPF (0-3)
[2019-09-15 01:06] LABS: Bacteria/HPF 1+ HPF (None Seen)
--- NOTE | 2019-09-15 07:21 | RAD ---
PORTABLE AP CHEST: Date: 09/14/2019 HISTORY: Patient fell and hit head. Hematoma to back of head. COMPARISON: 08/02/2019. FINDINGS: The cardiac silhouette is magnified by projection, but stable in size and does appear mildly enlarged . The pulmonary vasculature is within normal limits. The lungs remain clear. Vascular calcifications seen in thoracic aorta. Calcification again overlies the right lower chest, which is stable when comp ared to prior exam, and is shown to represent calcification in the right breast on the prior study on 01/09/2018. No other interval change. IMPRESSION: 1. No acute cardiopulmonary process. 2. Mild cardiomegaly. POS: [facility]
--- NOTE | 2019-09-15 07:36 | RAD ---
1 VIEW PELVIS: HISTORY: Fall. Pain. FINDINGS: Limited evaluation of the sacrum due to bowel gas and fecal material. Bony pelvis appears to be intac t. Both obturator rings are intact. Severe degenerative change in the left and right hip. Subchondral cyst formation and sclerosis is noted. Based on images provided, no obvious hip fracture. IMPRESSION: 1. No fracture. 2. Severe degenerative change in the left and right hip. Transcribed Date/Time: 09/15/2019 7:39 AM
--- NOTE | 2019-09-15 07:36 | RAD ---
Exam:2 views left hip HISTORY: Fall. Pain COMPARISON: None FINDINGS: Severe degenerative change. There is sclerosis and subchondral cyst formation. The contour of the femoral head is maintained. No obvious fracture. If the patient is unable to bear weight, consider additional imaging. Extensive vascular calcifications are noted. IMPRESSION: No obvious hip fracture. If the patient is unable to bear weight, consider additional juan ging CODE T Transcribed Date/Time: 09/15/2019 7:40 AM
== END 2019-09-15 01:49 | disposition home or self-care (01) ==
LOC: ERS 21:33
DX: S00.03XA Contusion of scalp, initial encounter (principal); R53.1 Weakness; R29.6 Repeated falls; E11.9 Type 2 diabetes mellitus without complications; E78.00 Pure hypercholesterolemia, unspecified; E03.9 Hypothyroidism, unspecified; I12.9 Hypertensive chronic kidney disease with stage 1 through stage 4 chronic kidney disease, or unspecified chronic kidney disease; Z79.899 Other long term (current) drug therapy; W18.30XA Fall on same level, unspecified, initial encounter
CPT/HCPCS: 36415; 70450; 71045; 72170; 80053; 81003; 81015; 83880; 85025

== ENCOUNTER 2020-02-01 23:58 | Inpatient (IN) | payer MEDICARE ==
[2020-02-02] MEDS ORDERED: Nitroglycerin 0.4 MG TAB 1 EACH ONE (00:14)
[2020-02-02 00:42] LABS: #Basophils 0.1 thou/uL (0.0-0.2); #Eosinphils 0.1 thou/uL (0.0-0.7); #Lymphocytes 2.3 thou/uL (1.20-3.40); #Monocytes 0.8 thou/uL (0.11-0.59); #Neutrophils 7.7 thou/uL (1.40-6.50); %Basophils 0.5 % (0.0-1.0); %Eosinophils 0.9 % (0.0-10.0); %Lymphocytes 21.2 % (21.0-51.0); %Monocytes 7.7 % (0.0-10.0); %Neutrophils 69.7 % (42.0-75.0); Hemoglobin 10.4 g/dL (12.0-16.0); Mean Corpuscular HGB CONC 30.9 g/dL (32.0-36.0); Mean Corpuscular Hemoglobin 28.4 pg (27.0-31.0); Mean Corpuscular Volume 91.8 fL (78.0-98.0); Mean Platelet Volume 8.6 fL (7.4-10.4); Platelet Count 262 thou/uL (130-400); RBC Distribution Width 14.5 % (11.5-14.5); Red Blood Cell (RBC) Count 3.65 mill/uL (4.20-5.40)
[2020-02-02 01:03] LABS: ALT (SGPT) 40 U/L (8-55); AST (SGOT) 59 U/L (5-34); Alkaline Phosphatase 57 U/L (40-110); Anion Gap 17 mmol/L (10-20); BUN (Urea Nitrogen) 79 mg/dL (9.8-20.1); Bilirubin, Total 0.4 mg/dL (0.2-1.2); Calc. Creatinine Clearance 0 mL/min (70-130); Calcium 8.6 mg/dL (7.8-10.44); Carbon Dioxide 18 mmol/L (23-31); Chloride 110 mmol/L (98-107); Estimated GFR-MDRD 14; Globulin 3.6 g/dL (2.4-3.5); Glucose 193 mg/dL (83-110); Potassium 4.6 mmol/L (3.5-5.1); Protein, Total 7.6 g/dL (6.0-8.3); Sodium 140 mmol/L (136-145)
[2020-02-02] MEDS ORDERED: cefTRIAXone\\ROCEPHIN 2 GM VIAL ONE (01:05)
[2020-02-02 01:24] LABS: CKMB 1.1 ng/mL (0-6.6)
[2020-02-02] MEDS ORDERED: Furosemide 20 MG/2 ML VIAL ONE (01:38)
[2020-02-02] MEDS ORDERED: Nitroglycerin 2% Ointment 1 INCH/1 GM Packet ONE (01:38)
[2020-02-02] MEDS ORDERED: Azithromycin 500 MG VIAL ONE (01:38)
--- NOTE | 2020-02-02 04:16 | HP ---
CHIEF COMPLAINT: Shortness of breath. HISTORY OF PRESENT ILLNESS: Ms. Sanchez is an 79-year-old female with past medical history of hypertension, hyperlipidemia, hypothyroidism, congestive heart failure, chronic kidney disease, hypertension, lupus, diabetes mellitus, among others, presents to the emergency room for evaluation of shortness of breath and chest pain. The patient also reports cough that is nonproductive. Denies fever or chills. Denies nausea, vomiting, or diarrhea. In the emergency room, the patient was in respiratory distress. BNP is elevated at 3710. Troponin is 0.05. Sodium is 140, BUN is 79, creatinine 3.7. WBC is 11, hemoglobin 10.4, platelets 262. Chest x-ray showed possible right lower lobe infiltrate. Septic workup in the ED started on IV antibiotics. The patient also was given Lasix. As per ER physician, the patient was diffusely wheezing, but after the breathing treatment with DuoNeb, her wheezing and respiration improved. No history of asthma, COPD, bronchitis, or smoking in the past. The patient is being in the hospital for further management. PAST MEDICAL HISTORY: 1. Diabetes mellitus. 2. Lupus. 3. Hypertension. 4. Heart blockage. 5. Hyperlipidemia. 6. Hypothyroidism. 7. Chronic kidney disease. 8. Congestive heart failure. PAST SURGICAL HISTORY: 1. Partial thyroidectomy. 2. Left shoulder surgery. 3. Breast biopsy. SOCIAL HISTORY: The patient lives at home with daughter. No history of smoking, alcohol drinking, or drug abuse. FAMILY HISTORY: Reviewed and noncontributory. HOME MEDICATIONS: Please see home medications reconciliation form for updated medications. ALLERGIES: NO KNOWN ALLERGIES. REVIEW OF SYSTEMS: Review of 14 systems negative except what is mentioned in history of present illness. PHYSICAL EXAMINATION: GENERAL: The patient is awake, alert, in moderate respiratory distress, orthopneic. HEAD AND NECK: Normocephalic and atraumatic. CHEST: Bibasilar crackles. HEART: S1 and S2. Regular. ABDOMEN: Soft and nontender. Bowel sounds present. NEUROLOGIC: Awake, alert, oriented x3. No focal deficits. PSYCH: Unable to assess. EXTREMITIES: No clubbing, no cyanosis. GENITOURINARY: No suprapubic tenderness. No flank tenderness. LABORATORY DATA: As mentioned above in history of present illness. Chest x-ray as mentioned above in history of present illness. ASSESSMENT AND PLAN: 1. Acute exacerbation of congestive heart failure. 2. Indeterminate troponin. 3. Chest pain. 4. Chronic kidney disease. 5. History of diabetes mellitus, hyperglycemia. 6. Hypertension. 7. History of lupus. 8. Hypothyroidism. PLAN: 1. Admit. 2. Telemetry monitoring. 3. Oxygen to keep saturation more than 92%. 4. IV diuresis. 5. Serial troponins. 6. 2D echo. 7. Continue with IV antibiotics for now. Cannot rule out underlying pneumonia. 8. Bronchodilators as needed. 9. Reconcile home medications. 10. DVT prophylaxis, low-dose heparin. 11. Expected length of stay, 2 midnights or more. Job ID: [id number]
[2020-02-02 05:12] LABS: Troponin I 0.171 ng/mL (< 0.028)
[2020-02-02] MEDS: Furosemide 40 MG/4 ML VIAL SLOW IVP SCH ×2 (06:32→13:25)
[2020-02-02] MEDS: Aspirin Chewable 81 MG TAB PO SCH (08:35)
[2020-02-02] MEDS ORDERED: cloNIDine 0.1 MG TAB PO PRN (08:53)
[2020-02-02] MEDS ORDERED: Non-Formulary Item 1 EACH (Omeprazole [Omeprazole] 20 MG) PO SCH (09:00)
[2020-02-02] MEDS ORDERED: Nebivolol HCl 5 MG TAB PO SCH (09:00)
[2020-02-02] MEDS ORDERED: Enoxaparin Sodium 40 MG/0.4 ML SYRINGE SC SCH (09:00)
[2020-02-02] MEDS ORDERED: NIFEdipine XL 90 MG TAB PO SCH (09:00)
[2020-02-02] MEDS ORDERED: Aspirin Chewable 81 MG TAB PO SCH (09:00)
[2020-02-02] MEDS ORDERED: Non-Formulary Item 1 EACH (Escitalopram Oxalate [Escitalopram Oxalate] 5 MG) PO SCH (09:00)
[2020-02-02] MEDS ORDERED: Losartan 25 MG TAB PO SCH (09:00)
[2020-02-02] MEDS: cloNIDine 0.2 MG TAB PO SCH ×2 (09:38→19:58)
[2020-02-02] MEDS: Escitalopram Oxalate 10 mg Tablet PO SCH (09:40)
[2020-02-02] MEDS: Atorvastatin Calcium 20 MG TAB PO SCH (09:40)
--- NOTE | 2020-02-02 10:40 | RAD ---
SINGLE VIEW OF THE CHEST: COMPARISON: 09/14/2019. HISTORY: Dyspnea. FINDINGS: A single view of the chest shows an enlarged but stable cardiomediastinal silhouette. Bilateral gretchen hilar fullness may represent volume overload. Atherosclerotic calcifications are seen in the aorta. Atelectasis is seen in both lung bases. IMPRESSION: Cardiomegaly with pulmonary vascular congestion. POS: [facility]
[2020-02-02 11:51] LABS: Troponin I 2.389 ng/mL (< 0.028)
[2020-02-02 18:24] LABS: CKMB 7.2 ng/mL (0-6.6)
[2020-02-02] MEDS: Acetaminophen 325 MG TAB PO PRN (19:59)
[2020-02-02] MEDS: hydrALAZINE 25 MG TAB PO SCH (19:59)
--- NOTE | 2020-02-02 22:01 | CON ---
DATE OF CONSULTATION: HISTORY OF PRESENT ILLNESS: Melanie Sanchez is an 79-year-old black female, whom I have followed since February 2014, when she was evaluated for chest discomfort. She had abnormal Cardiolite. Ultimately underwent cardiac catheterization in April 2014 [facility] This revealed normal left ventricular function with ejection fraction of 55% to 60%. There was a 20% proximal LAD, 70% apical LAD. The ramus had a 60% stenosis. The circumflex had a 60% mid-stenosis. The right coronary artery had 20% proximal, 20% mid, and 50% lesion in both posterior and posterolateral. There was faint filling of the posterolateral retrograde from the left. It was felt best to treat her medically. She was admitted in June 2015, for diastolic heart failure. Cardiolite scan last year revealed proximal distal inferior and distal lateral ischemia consistent with her right coronary artery disease. In general, she has done well without significant chest discomfort, but does have dyspnea on exertion. She now is admitted with shortness of breath and chest discomfort for the last several days. Her BNP was found to be 3710. She was started on intravenous antibiotics and given furosemide. She was wheezing on admission and was given DuoNeb, that also has improved. PAST MEDICAL HISTORY: Three-vessel coronary artery disease, medical treatment, chronic thrombosis of the right popliteal, GERD, hypercholesterolemia, hypertension, hypothyroidism, diabetes, lupus. OPERATIONS: Partial thyroidectomy, breast biopsy, left shoulder surgery. SOCIAL HISTORY: She does not smoke or drink. MEDICATIONS: 1. Aspirin 81 daily. 2. Atorvastatin 20 at bedtime. 3. Clonidine 0.1 b.i.d. 4. Hydroxychloroquine 300 daily. 5. Isosorbide mononitrate 60 b.i.d. 6. Levothyroxine 25 mcg daily. 7. Losartan 50 b.i.d. 8. Bystolic 20 b.i.d. 9. Nifedipine 90 daily. 10. Omeprazole 20 daily. 11. Torsemide 20 daily. ALLERGIES: NONE. FAMILY HISTORY: Unremarkable. REVIEW OF SYSTEMS: Twelve-point review of systems is otherwise unremarkable. PHYSICAL EXAMINATION: VITAL SIGNS: Blood pressure 142/69, pulse of 67. HEENT: PERRL. NECK: Supple. CHEST: Crackles at the bases. CARDIAC: S1 and S2 normal without any S3, S4, or murmurs. ABDOMEN: Normal bowel sounds without tenderness or organomegaly. EXTREMITIES: No clubbing, cyanosis, or edema. NEUROLOGIC: Grossly intact. SKIN: Warm and dry. LABORATORY DATA: EKG reveals normal sinus rhythm with left axis deviation, left bundle-branch block. Chest x-ray reveals cardiomegaly with pulmonary vascular congestion. Hemoglobin 10.4, hematocrit 33.5, white count 66232, platelets 262, 000. Troponin I 2.389. BNP 3710.9. IMPRESSION: 1. Nplcd-[id number] diastolic heart failure. She certainly may have some degree of systolic dysfunction as well. Echo has been ordered. 2. Possible [id number] myocardial infarction. 3. Three-vessel coronary artery disease for medical therapy. 4. Hypertension. 5. Hypercholesterolemia. 6. Chronic kidney disease. 7. History of lupus. 8. Hypothyroidism. PLAN: Echocardiogram will be reviewed. She is to be diuresed gently. Consideration should be given for repeat cardiac catheterization; however, I would be quite hesitant to proceed with her current degree of renal insufficiency. Job ID: [id number] MTDD
[2020-02-02] MEDS ORDERED: cefTRIAXone\\ROCEPHIN 1 GM in Sodium Chloride 0.9% 100 ML IVPB SCH (23:59)
[2020-02-03] MEDS ORDERED: Azithromycin 500 MG in Sodium Chloride 0.9% 250 ML 250 ML IVPB SCH (01:00)
[2020-02-03 04:46] LABS: Anion Gap 15 mmol/L (10-20); BUN (Urea Nitrogen) 74 mg/dL (9.8-20.1); Calc. Creatinine Clearance 15 mL/min (70-130); Calcium 8.4 mg/dL (7.8-10.44); Carbon Dioxide 18 mmol/L (23-31); Cardiac Risk 2.5 (Less than 4.5); Chloride 111 mmol/L (98-107); Cholesterol 113 mg/dl (< 200 Desired); Estimated GFR-MDRD 16; Glucose 128 mg/dL (83-110); HDL Cholesterol 46 mg/dL (>60 Neg Risk); LDL Cholesterol, Calculated 54 mg/dL; Potassium 4.3 mmol/L (3.5-5.1); Sodium 140 mmol/L (136-145); Triglycerides 63 mg/dL (Less than 150)
[2020-02-03 04:54] LABS: Critical Call Chem Troponin I RESULT DECREASING
[2020-02-03 05:12] LABS: CKMB 4.6 ng/mL (0-6.6)
[2020-02-03 05:16] LABS: #Basophils 0.1 thou/uL (0.0-0.2); #Eosinphils 0.1 thou/uL (0.0-0.7); #Lymphocytes 1.7 thou/uL (1.20-3.40); #Monocytes 0.8 thou/uL (0.11-0.59); #Neutrophils 4.5 thou/uL (1.40-6.50); %Basophils 0.8 % (0.0-1.0); %Eosinophils 1.5 % (0.0-10.0); %Lymphocytes 23.8 % (21.0-51.0); %Monocytes 10.9 % (0.0-10.0); %Neutrophils 63.1 % (42.0-75.0); Hemoglobin 9.4 g/dL (12.0-16.0); Mean Corpuscular HGB CONC 29.8 g/dL (32.0-36.0); Mean Corpuscular Hemoglobin 27.5 pg (27.0-31.0); Mean Corpuscular Volume 92.4 fL (78.0-98.0); Platelet Count 198 thou/uL (130-400); RBC Distribution Width 14.1 % (11.5-14.5); Red Blood Cell (RBC) Count 3.43 mill/uL (4.20-5.40); White Blood Cell (WBC) Count 7.1 thou/uL (4.8-10.8)
[2020-02-03] MEDS: Levothyroxine Sodium 25 MCG TAB PO SCH (05:32)
[2020-02-03] MEDS: Furosemide 40 MG/4 ML VIAL SLOW IVP SCH ×2 (05:32→15:05)
[2020-02-03] MEDS: Escitalopram Oxalate 10 mg Tablet PO SCH (08:43)
[2020-02-03] MEDS: hydrALAZINE 25 MG TAB PO SCH ×3 (08:43→21:54)
[2020-02-03] MEDS: Carvedilol 25 MG TAB PO SCH ×2 (08:43→17:32)
[2020-02-03] MEDS: Aspirin Chewable 81 MG TAB PO SCH (08:43)
[2020-02-03] MEDS: Atorvastatin Calcium 20 MG TAB PO SCH (08:43)
[2020-02-03] MEDS: Enoxaparin Sodium 30 MG/0.3 ML SYRINGE SC SCH (08:44)
[2020-02-03] MEDS: cloNIDine 0.2 MG TAB PO SCH ×2 (08:44→21:53)
--- NOTE | 2020-02-03 10:12 | RAD ---
Exam: Chest one view HISTORY:Dyspnea Comparison: 02/02/2020 FINDINGS: Cardiac silhouette: Normal Aorta: Atherosclerosis Pulmonary vessels: Normal Costophrenic angles: Persistent bilateral pleural effusions LUNGS: Slightly improved aeration lung parenchyma. Residual opacities do remain Pneumothorax: None Osseous abnormalities: None IMPRESSION: Slightly improved aeration lung parenchyma. Residual pleural effusion and parenchymal newton nges.
--- NOTE | 2020-02-03 15:52 | PDOC.HOSPP ---
- Subjective Encounter Date: 02/03/20 Subjective: Less SOB today. - Objective Vital Signs & Weight: Vital Signs (12 hours) Temp Pulse Resp BP Pulse Ox 02/03/20 15:04 67 02/03/20 15:03 97.9 F 67 18 167/74 H 97 02/03/20 11:33 98 F 66 16 157/74 H 96 02/03/20 08:15 97 02/03/20 08:11 98 F 67 18 167/79 H 97 02/03/20 06:56 98 Weight Weight 157 lb 4.8 oz I&O: 02/02/20 02/03/20 02/04/20 06:59 06:59 06:59 Intake Total 840 Output Total 800 Balance 40 Result Diagrams: 02/03/20 03:54 02/03/20 03:54 Additional Labs: Accuchecks 02/03/20 02/03/20 02/02/20 11:00 05:59 20:25 POC Glucose 181 H 126 H 163 H 02/02/20 15:43 POC Glucose 141 H Hospitalist ROS - Medication Medications: Active Medications Generic Name Dose Route Start Last Admin Trade Name Freq PRN Reason Stop Dose Admin Acetaminophen 650 mg 02/02/20 08:53 02/02/20 19:59 Tylenol PO 650 mg Q4H PRN Administration Headache/Fever or Mild Pain Aspirin 81 mg 02/02/20 09:00 02/03/20 08:43 Aspirin Chewable PO 81 mg DAILY DUC Administration Atorvastatin Calcium 20 mg 02/02/20 09:00 02/03/20 08:43 Lipitor PO 20 mg DAILY DUC Administration Carvedilol 25 mg 02/03/20 08:00 02/03/20 08:43 Coreg PO 25 mg BID- DUC Administration Clonidine 0.1 mg 02/02/20 09:00 02/03/20 08:44 Catapres PO 0.1 mg BID DUC Administration Enoxaparin Sodium 30 mg 02/03/20 09:00 02/03/20 08:44 Lovenox SC 30 mg 0900 DUC Administration Escitalopram Oxalate 5 mg 02/02/20 09:00 02/03/20 08:43 Lexapro PO 5 mg DAILY DUC Administration Furosemide 40 mg 02/02/20 06:00 02/03/20 15:05 Lasix SLOW IVP 40 mg 0600,1400 DUC Administration Hydralazine HCl 100 mg 02/03/20 15:00 02/03/20 15:04 Apresoline PO 100 mg TID DUC Administration Isosorbide Mononitrate 60 mg 02/02/20 09:00 02/03/20 08:43 Imdur PO 60 mg BID DUC Administration Levothyroxine Sodium 25 mcg 02/03/20 06:00 02/03/20 05:32 Synthroid PO 25 mcg 0600 DUC Administration Pantoprazole Sodium 40 mg 02/02/20 09:00 02/03/20 08:44 Protonix PO 40 mg DAILY DUC Administration Sodium Chloride 10 ml 02/02/20 21:00 02/03/20 08:44 Flush - Normal Saline IVF 10 ml Q12HR DUC Administration - Exam General Appearance: awake alert Neck: supple Heart: RRR, no murmur, no gallops, no rubs Respiratory: normal chest expansion, no tachypnea, rhonchi Gastrointestinal: soft Extremities: no cyanosis Neurological: cranial nerve grossly intact, no focal deficits Hosp A/P (1) Acute on chronic systolic (congestive) heart failure Code(s): I50.23 - ACUTE ON CHRONIC SYSTOLIC (CONGESTIVE) HEART FAILURE Status : Acute (2) Troponin level elevated Code(s): R79.89 - OTHER SPECIFIED ABNORMAL FINDINGS OF BLOOD CHEMISTRY Status : Acute (3) CKD (chronic kidney disease) Code(s): N18.9 - CHRONIC KIDNEY DISEASE, UNSPECIFIED Status: Acute (4) Dyslipidemia associated with type 2 diabetes mellitus Code(s): E11.69 - TYPE 2 DIABETES MELLITUS WITH OTHER SPECIFIED COMPLICATION; E78.5 - HYPERLIPIDEMIA, UNSPECIFIED Status: Acute (5) Diabetes mellitus type 2 in obese Code(s): E11.9 - TYPE 2 DIABETES MELLITUS WITHOUT COMPLICATIONS; E66.9 - OBESITY , UNSPECIFIED Status: Chronic (6) Hypertension, uncontrolled Code(s): I10 - ESSENTIAL (PRIMARY) HYPERTENSION Status: Chronic - Plan Low salt diet 1500CC fluid restriction. Strict I&O Continue IV lasix. Echo showing EF of 25%. Troponin elevated due to CHF and CKD. Cardiology on board. Pneumonia unlikely. DC IV antibiotics.
[2020-02-03] MEDS: Acetaminophen 325 MG TAB PO PRN (17:31)
[2020-02-04 04:35] LABS: Band 1 % (5-11); Eosinophils 3 % (0-10); Hemoglobin 8.9 g/dL (12.0-16.0); Lymphocytes 24 % (21-51); MDiff Complete? YES; Mean Corpuscular HGB CONC 29.9 g/dL (32.0-36.0); Mean Corpuscular Hemoglobin 27.5 pg (27.0-31.0); Mean Platelet Volume 9.3 fL (7.4-10.4); Monocytes 5 % (0-10); Neutrophil 67 % (42-75); Platelet Count 181 thou/uL (130-400); Platelet Morphology Comment Appears Adequate; RBC Distribution Width 13.9 % (11.5-14.5); Red Blood Cell (RBC) Count 3.24 mill/uL (4.20-5.40); White Blood Cell (WBC) Count 6.1 thou/uL (4.8-10.8)
[2020-02-04 04:42] LABS: Anion Gap 13 mmol/L (10-20); BUN (Urea Nitrogen) 68 mg/dL (9.8-20.1); Calc. Creatinine Clearance 16 mL/min (70-130); Calcium 8.3 mg/dL (7.8-10.44); Carbon Dioxide 20 mmol/L (23-31); Chloride 110 mmol/L (98-107); Estimated GFR-MDRD 18; Glucose 136 mg/dL (83-110); Potassium 4.4 mmol/L (3.5-5.1); Sodium 139 mmol/L (136-145)
[2020-02-04] MEDS: Furosemide 40 MG/4 ML VIAL SLOW IVP SCH ×2 (05:37→14:50)
[2020-02-04] MEDS: Levothyroxine Sodium 25 MCG TAB PO SCH (05:37)
[2020-02-04] MEDS: Escitalopram Oxalate 10 mg Tablet PO SCH (08:24)
[2020-02-04] MEDS: hydrALAZINE 25 MG TAB PO SCH ×3 (08:25→20:37)
[2020-02-04] MEDS: cloNIDine 0.2 MG TAB PO SCH ×2 (08:26→20:37)
[2020-02-04] MEDS: Aspirin Chewable 81 MG TAB PO SCH (08:26)
[2020-02-04] MEDS: Carvedilol 25 MG TAB PO SCH ×2 (08:26→17:02)
[2020-02-04] MEDS: Atorvastatin Calcium 20 MG TAB PO SCH (08:26)
[2020-02-04] MEDS: Enoxaparin Sodium 30 MG/0.3 ML SYRINGE SC SCH (08:27)
[2020-02-04] MEDS ORDERED: Insulin Regular 300 UNITS/3 ML VIAL SC PRN (11:32)
[2020-02-04] MEDS ORDERED: Dextrose 5% in Water 1,000 ML IV PRN (11:32)
[2020-02-04] MEDS ORDERED: Dextrose 50% Abboject 50 ML SYRINGE SLOW IVP PRN (11:32)
[2020-02-04] MEDS: Insulin Regular 300 UNITS/3 ML VIAL SC PRN (12:13)
--- NOTE | 2020-02-04 16:00 | PDOC.HOSPP ---
- Subjective Encounter Date: 02/04/20 Encounter Time: 10:45 Subjective: Patient seen and examined for NSTEMI/CHF. No CP or SOB. No new complaints. No overnight events - Objective Vital Signs & Weight: Vital Signs (12 hours) Temp Pulse Pulse Resp BP BP BP 02/04/20 14:48 60 16 149/79 H 02/04/20 13:09 60 147/71 H 02/04/20 11:20 97.6 F 62 16 157/72 H 02/04/20 11:10 62 157/72 H 159/75 H 02/04/20 10:00 144/68 H 02/04/20 08:25 02/04/20 08:20 97.5 F L 63 16 184/83 H Pulse Ox Pulse Ox 02/04/20 14:48 96 02/04/20 13:09 99 02/04/20 11:20 99 02/04/20 11:10 02/04/20 10:00 02/04/20 08:25 100 02/04/20 08:20 100 Weight Weight 155 lb 4.8 oz I&O: 02/03/20 02/04/20 02/05/20 06:59 06:59 06:59 Intake Total 840 1040 Output Total 800 2000 Balance 40 -960 Result Diagrams: 02/04/20 04:09 02/04/20 04:09 Additional Labs: Accuchecks 02/04/20 02/04/20 02/03/20 10:52 06:18 20:48 POC Glucose 190 H 129 H 187 H 02/03/20 17:04 POC Glucose 125 H EKG Reviewed by me: Yes (Tele SR) Hospitalist ROS - Review of Systems Respiratory: denies: cough, dry, shortness of breath, hemoptysis, SOB with excertion, pleuritic pain, sputum, wheezing, other Cardiovascular: denies: chest pain, palpitations, orthopnea, paroxysmal noc. dyspnea, edema, light headedness, other - Medication Medications: Active Medications Generic Name Dose Route Start Last Admin Trade Name Freq PRN Reason Stop Dose Admin Acetaminophen 650 mg 02/02/20 08:53 02/03/20 17:31 Tylenol PO 650 mg Q4H PRN Administration Headache/Fever or Mild Pain Aspirin 81 mg 02/02/20 09:00 02/04/20 08:26 Aspirin Chewable PO 81 mg DAILY DUC Administration Atorvastatin Calcium 20 mg 02/02/20 09:00 02/04/20 08:26 Lipitor PO 20 mg DAILY DUC Administration Carvedilol 25 mg 02/03/20 08:00 02/04/20 08:26 Coreg PO 25 mg BID-WM DUC Administration Clonidine 0.1 mg 02/02/20 09:00 02/04/20 08:26 Catapres PO 0.1 mg BID DUC Administration Enoxaparin Sodium 30 mg 02/03/20 09:00 02/04/20 08:27 Lovenox SC 30 mg 0900 DUC Administration Escitalopram Oxalate 5 mg 02/02/20 09:00 02/04/20 08:24 Lexapro PO 5 mg DAILY DUC Administration Furosemide 40 mg 02/02/20 06:00 02/04/20 14:50 Lasix SLOW IVP 02/04/20 23:59 40 mg 0600,1400 DUC Administration Hydralazine HCl 100 mg 02/03/20 15:00 02/04/20 14:50 Apresoline PO 100 mg TID DCU Administration Insulin Human Regular 0 units 02/04/20 11:32 02/04/20 12:13 Humulin R SC 2 unit .MILD SLIDING SCALE PRN Administration Mild Correctional Scale Isosorbide Mononitrate 60 mg 02/02/20 09:00 02/04/20 08:27 Imdur PO 60 mg BID DUC Administration Levothyroxine Sodium 25 mcg 02/03/20 06:00 02/04/20 05:37 Synthroid PO 25 mcg 0600 UDC Administration Pantoprazole Sodium 40 mg 02/02/20 09:00 02/04/20 08:26 Protonix PO 40 mg DAILY DUC Administration Sodium Chloride 10 ml 02/02/20 21:00 02/04/20 08:27 Flush - Normal Saline IVF 10 ml Q12HR DUC Administration - Exam General Appearance: NAD Heart: RRR, no gallops Respiratory: no wheezes, no ronchi Gastrointestinal: non-tender, non-distended, normal bowel sounds Extremities: no cyanosis, no clubbing Neurological: no new deficit Hosp A/P - Plan plan discussed w/ family, DVT proph w/lovenox Acute on chronic systolic/diastolic HF HTN urgency ?NSTEMI CAD s/p CABG SUKHI on CKD 4 Metabolic acidosis Hypothyroidism Mod MR h/o SLE PLAN: Cont ASA Cont Coreg No ACEI/ARB/Aldactone due to CKD Cont Clonidine AM labs Cont fluid restriction [facility] at dc I d/w Dr Velasco - Cardiac Cath if Cr <2.5 DPOA - daughter
[2020-02-04] MEDS: Polyethylene Glycol 3350 17 GM Packet PO SCH (20:38)
[2020-02-04] MEDS: Senokot S 8.6-50 MG TAB PO SCH (20:38)
[2020-02-05 04:51] LABS: #Eosinphils 0.1 thou/uL (0.0-0.7); #Lymphocytes 1.3 thou/uL (1.20-3.40); #Monocytes 0.7 thou/uL (0.11-0.59); #Neutrophils 4.1 thou/uL (1.40-6.50); %Basophils 0.3 % (0.0-1.0); %Eosinophils 1.7 % (0.0-10.0); %Lymphocytes 20.4 % (21.0-51.0); %Monocytes 11.6 % (0.0-10.0); %Neutrophils 66.1 % (42.0-75.0); Hemoglobin 9.5 g/dL (12.0-16.0); Mean Corpuscular HGB CONC 31.4 g/dL (32.0-36.0); Mean Corpuscular Hemoglobin 28.8 pg (27.0-31.0); Mean Corpuscular Volume 91.7 fL (78.0-98.0); Mean Platelet Volume 9.4 fL (7.4-10.4); Platelet Count 183 thou/uL (130-400); RBC Distribution Width 13.7 % (11.5-14.5); White Blood Cell (WBC) Count 6.2 thou/uL (4.8-10.8)
[2020-02-05 05:12] LABS: Anion Gap 14 mmol/L (10-20); BUN (Urea Nitrogen) 63 mg/dL (9.8-20.1); Calc. Creatinine Clearance 17 mL/min (70-130); Calcium 8.3 mg/dL (7.8-10.44); Carbon Dioxide 20 mmol/L (23-31); Chloride 108 mmol/L (98-107); Estimated GFR-MDRD 18; Glucose 121 mg/dL (83-110); Magnesium 2.1 mg/dL (1.6-2.6); Potassium 4.3 mmol/L (3.5-5.1); Sodium 138 mmol/L (136-145)
[2020-02-05] MEDS: Levothyroxine Sodium 25 MCG TAB PO SCH (05:30)
[2020-02-05] MEDS: Enoxaparin Sodium 30 MG/0.3 ML SYRINGE SC SCH (08:28)
[2020-02-05] MEDS: Escitalopram Oxalate 10 mg Tablet PO SCH (08:28)
[2020-02-05] MEDS: Carvedilol 25 MG TAB PO SCH ×2 (08:30→17:04)
[2020-02-05] MEDS: Aspirin Chewable 81 MG TAB PO SCH (08:30)
[2020-02-05] MEDS: cloNIDine 0.2 MG TAB PO SCH ×2 (08:31→20:37)
[2020-02-05] MEDS: hydrALAZINE 25 MG TAB PO SCH ×3 (08:31→20:33)
[2020-02-05] MEDS: Atorvastatin Calcium 20 MG TAB PO SCH (08:31)
[2020-02-05] MEDS: Furosemide 40 MG TAB PO SCH (08:31)
[2020-02-05] MEDS: Senokot S 8.6-50 MG TAB PO SCH ×2 (11:11→20:35)
--- NOTE | 2020-02-05 11:13 | CON ---
DATE OF CONSULTATION: 02/05/2020 CONSULTING PHYSICIAN: REASON FOR CONSULTATION: Acute kidney injury. REASON FOR ADMISSION: Shortness of breath. HISTORY OF PRESENT ILLNESS: This is an 79-year-old female with history of hypertension, hyperlipidemia, hypothyroidism, and lupus, came to the hospital with shortness of breath, which is being evaluated. No fever or chills. The patient was found to have elevated creatinine, which is getting better, but she needs a heart catheterization also and Nephrology is consulted for perioperative management and acute kidney injury management. PAST MEDICAL HISTORY: Positive for type 2 diabetes, lupus, hypertension, hyperlipidemia, hypothyroidism, and history of heart failure. PAST SURGICAL HISTORY: Partial thyroidectomy, left shoulder surgery, and breast biopsy. HOME MEDICATIONS: Reviewed. ALLERGIES: NO KNOWN DRUG ALLERGIES. SOCIAL HISTORY: No smoking, alcohol, or illicit drugs abuse. FAMILY HISTORY: No history of any kidney disease. REVIEW OF SYSTEMS: CONSTITUTIONAL: Negative for weight loss or gain, ability to conduct usual activities. SKIN: Negative for rash, itching. EYES: Negative for double vision, pain. ENT/MOUTH: Negative for nose bleeding, neck stiffness, pain, tenderness. CARDIOVASCULAR: Negative for palpitations, dyspnea on exertion, orthopnea. RESPIRATORY: Negative for shortness of breath, wheezing, cough, hemoptysis, fever or night sweats. GASTROINTESTINAL: Negative for poor appetite, abdominal pain, heartburn, nausea, vomiting, constipation, or diarrhea. GENITOURINARY: Negative for urgency, frequency, dysuria, nocturia. MUSCULOSKELETAL: Negative for pain, swelling. NEUROLOGIC/PSYCHIATRIC: Negative for anxiety, depression. ALLERGY/IMMUNOLOGIC: Negative for skin rash, bleeding tendency. PHYSICAL EXAMINATION: GENERAL: Reveals a well-built female, in no apparent distress. VITAL SIGNS: Temperature 98.1, pulse 67, respiratory rate 20, and blood pressure . HEENT: Atraumatic, normocephalic. Oral mucosa is moist. NECK: Supple. CARDIOVASCULAR: S1 and S2. Rate and rhythm regular. RESPIRATORY: Clear. GASTROINTESTINAL: Abdomen is soft. MUSCULOSKELETAL: 1+ edema. DERMATOLOGIC: No skin rash. NEUROLOGIC: Alert and awake. PSYCHIATRIC: Mood and affect normal. LABORATORY DATA: Hemoglobin is 9.5. Potassium 4.3, BUN is 63, and creatinine is 2.9. ASSESSMENT AND PLAN: 1. Acute kidney injury on chronic kidney disease, stage 4 with labs are actually getting better. Creatinine improved from 3.7 down to 2.9 during this admission. Continue current management. The patient remains high risk for renal injury with contrast exposure, but monitor renal function closely for now. 2. Acidosis. 3. Cardiorenal syndrome. 4. Hypertension. 5. Chronic anemia. 6. We will monitor renal function closely. Thank you for the consult. Job ID: [id number]
[2020-02-05] MEDS: Insulin Regular 300 UNITS/3 ML VIAL SC PRN ×2 (12:09→17:08)
--- NOTE | 2020-02-05 14:20 | PDOC.CPN ---
- Subjective Date: 02/05/20 Time: 14:31 Interval history: The pt seen and examined. No overnight events. No cardiac complaints. - Objective Allergies/Adverse Reactions: Allergies Allergy/AdvReac Type Severity Reaction Status Date / Time No Known Allergies Allergy Verified 11/29/19 09:15 Visit Medications: Current Medications Acetaminophen (Tylenol) 650 mg PO Q4H PRN PRN Reason: Headache/Fever or Mild Pain Last Admin: 02/03/20 17:31 Dose: 650 mg Albuterol/Ipratropium (Duoneb) 3 ml NEB [id number] PRN PRN Reason: SOB &/or Wheezing Aspirin (Aspirin Chewable) 81 mg PO DAILY [facility] Last Admin: 02/05/20 08:30 Dose: 81 mg Atorvastatin Calcium (Lipitor) 20 mg PO DAILY [facility] Last Admin: 02/05/20 08:31 Dose: 20 mg Carvedilol (Coreg) 25 mg PO BID-WM [facility] Last Admin: 02/05/20 08:30 Dose: 25 mg Clonidine (Catapres) 0.1 mg PO BID [facility] Last Admin: 02/05/20 08:31 Dose: 0.1 mg Clonidine (Catapres) 0.1 mg PO Q4H PRN PRN Reason: SBP Greater Than 180 Dextrose/Water (Dextrose 50%) 25 gm SLOW IVP PRN PRN PRN Reason: Hypoglycemia Enoxaparin Sodium (Lovenox) 30 mg SC 0900 [facility] Last Admin: 02/05/20 08:28 Dose: 30 mg Escitalopram Oxalate (Lexapro) 5 mg PO DAILY [facility] Last Admin: 02/05/20 08:28 Dose: 5 mg Furosemide (Lasix) 40 mg PO DAILY-AC [facility] Last Admin: 02/05/20 08:31 Dose: 40 mg Glucagon (Glucagon) 1 mg IM PRN PRN PRN Reason: Hypoglycemia Hydralazine HCl (Apresoline) 100 mg PO TID [facility] Last Admin: 02/05/20 08:31 Dose: 100 mg Dextrose/Water (D5w) 1,000 mls @ 0 mls/hr IV .Q0M PRN PRN Reason: Hypoglycemia Insulin Human Regular (Humulin R) 0 units SC .MILD SLIDING SCALE PRN PRN Reason: Mild Correctional Scale Last Admin: 02/05/20 12:09 Dose: 2 unit Insulin Human Regular (Humulin R) 0 units SC .BEDTIME SLIDING SC PRN PRN Reason: Bedtime Correctional Scale Isosorbide Mononitrate (Imdur) 60 mg PO BID [facility] Last Admin: 02/05/20 08:30 Dose: 60 mg Levothyroxine Sodium (Synthroid) 25 mcg PO 0600 [facility] Last Admin: 02/05/20 05:30 Dose: 25 mcg Pantoprazole Sodium (Protonix) 40 mg PO DAILY [facility] Last Admin: 02/05/20 08:35 Dose: 40 mg Polyethylene Glycol (Miralax) 17 gm PO HS [facility] Last Admin: 02/04/20 20:38 Dose: 17 gm Senna/Docusate Sodium (Senokot S) 2 tab PO BID [facility] Last Admin: 02/05/20 11:11 Dose: Not Given Sodium Chloride (Flush - Normal Saline) 10 ml IVF Q12HR [facility] Last Admin: 02/05/20 08:28 Dose: 10 ml Sodium Chloride (Flush - Normal Saline) 10 ml IVF PRN PRN PRN Reason: Saline Flush Vital Signs & Weight: Vital Signs Temp Pulse Resp BP Pulse Ox 02/05/20 12:00 98.6 F 64 16 149/67 H 97 02/05/20 08:00 98.4 F 65 16 174/80 H 100 02/05/20 03:16 98.1 F 67 20 139/65 98 Weight 160 lb 1.6 oz - Physical Exam General: alert & oriented x3 HEENT: mucus membranes moist Neck: supple neck Cardiac: regular rate and rhythm, S1/S2 Lungs: decreased breath sounds - Labs Result Diagrams: 02/05/20 04:31 02/05/20 04:31 Troponin/CKMB CK-MB (CK-2) 4.6 ng/mL (0-6.6) 02/03/20 03:54 Troponin I 2.256 ng/mL (< 0.028) H* 02/03/20 03:54 - Telemetry Sinus rhythms and dysrhythmias: sinus rhythm - Assessment/Plan Assessment/Plan: 1. 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 HTN - will resume Nifedipine 60mg qd; may increase to 90mg 3. 3V CAD with hx of cath in 2013 with 20% stenosis in prox LAD, 70% in apical LAD, 60% in ramus, 60% in mid Lt Cx, 20% in prox and mid RCA, and 50% in posterolateral and posterior RCA with medical tx only - Plan for cardiac cath next wk if Cr <2.5; On ASA, coreg, and Statin 4. SUKHI on CKD 4 5. HLD - 6. Hypothyroidism - 7. DM type 2 8. Lupus * Echo on 02/02/2020 with EF 20-25%, grade I dd, mild LAE, mild MR and TR * Dr Velasco's pt Pt. seen and eval. by me. 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 Chest clear. RRR. gjm
[2020-02-05] MEDS ORDERED: NIFEdipine XL 60 MG TAB PO SCH (14:30)
[2020-02-05] MEDS: Acetaminophen 325 MG TAB PO PRN (17:05)
--- NOTE | 2020-02-05 17:57 | PDOC.HOSPP ---
- Subjective Encounter Date: 02/05/20 Encounter Time: 16:00 Subjective: Patient seen and examined for CHF. No CP or SOB. No new complaints. No overnight events - Objective Vital Signs & Weight: Vital Signs (12 hours) Temp Pulse Resp BP BP Pulse Ox 02/05/20 16:58 99.5 F 64 20 156/71 H 98 02/05/20 15:11 97.5 F L 61 20 144/66 H 02/05/20 15:02 61 144/66 H 02/05/20 12:00 98.6 F 64 16 149/67 H 97 02/05/20 08:00 98.4 F 65 16 174/80 H 100 Weight Weight 160 lb 1.6 oz I&O: 02/04/20 02/05/20 02/06/20 06:59 06:59 06:59 Intake Total 1040 944 Output Total 2000 450 Balance -960 494 Result Diagrams: 02/05/20 04:31 02/05/20 04:31 Additional Labs: Accuchecks 02/05/20 02/05/20 02/05/20 16:53 11:02 05:45 POC Glucose 282 H 172 H 133 H 02/04/20 20:37 POC Glucose 136 H EKG Reviewed by me: Yes (Tele SR) Hospitalist ROS - Review of Systems Respiratory: denies: cough, dry, shortness of breath, hemoptysis, SOB with excertion, pleuritic pain, sputum, wheezing, other Cardiovascular: denies: chest pain, palpitations, orthopnea, paroxysmal noc. dyspnea, edema, light headedness, other - Medication Medications: Active Medications Generic Name Dose Route Start Last Admin Trade Name Freq PRN Reason Stop Dose Admin Acetaminophen 650 mg 02/02/20 08:53 02/05/20 17:05 Tylenol PO 650 mg Q4H PRN Administration Headache/Fever or Mild Pain Aspirin 81 mg 02/02/20 09:00 02/05/20 08:30 Aspirin Chewable PO 81 mg DAILY DUC Administration Atorvastatin Calcium 20 mg 02/02/20 09:00 02/05/20 08:31 Lipitor PO 20 mg DAILY DUC Administration Carvedilol 25 mg 02/03/20 08:00 02/05/20 17:04 Coreg PO 25 mg BID- DUC Administration Clonidine 0.1 mg 02/02/20 09:00 02/05/20 08:31 Catapres PO 0.1 mg BID DUC Administration Enoxaparin Sodium 30 mg 02/03/20 09:00 02/05/20 08:28 Lovenox SC 30 mg 0900 DUC Administration Escitalopram Oxalate 5 mg 02/02/20 09:00 02/05/20 08:28 Lexapro PO 5 mg DAILY DUC Administration Furosemide 40 mg 02/05/20 07:30 02/05/20 08:31 Lasix PO 40 mg DAILY-AC DUC Administration Hydralazine HCl 100 mg 02/03/20 15:00 02/05/20 15:07 Apresoline PO 100 mg TID DUC Administration Insulin Human Regular 0 units 02/04/20 11:32 02/05/20 17:08 Humulin R SC 4 unit .MILD SLIDING SCALE PRN Administration Mild Correctional Scale Isosorbide Mononitrate 60 mg 02/02/20 09:00 02/05/20 08:30 Imdur PO 60 mg BID DUC Administration Levothyroxine Sodium 25 mcg 02/03/20 06:00 02/05/20 05:30 Synthroid PO 25 mcg 0600 DUC Administration Nifedipine 60 mg 02/05/20 14:30 02/05/20 15:02 Procardia Xl PO 02/05/20 18:00 60 mg NOW DUC Administration Pantoprazole Sodium 40 mg 02/02/20 09:00 02/05/20 08:35 Protonix PO 40 mg DAILY DUC Administration Polyethylene Glycol 17 gm 02/04/20 21:00 02/04/20 20:38 Miralax PO 17 gm HS DUC Administration Senna/Docusate Sodium 2 tab 02/04/20 21:00 02/05/20 11:11 Senokot S PO Not Given BID DUC Sodium Chloride 10 ml 02/02/20 21:00 02/05/20 08:28 Flush - Normal Saline IVF 10 ml Q12HR DUC Administration - Exam General Appearance: NAD Neck: supple, no JVD Heart: RRR, no gallops Respiratory: no wheezes, no ronchi Gastrointestinal: soft, non-tender, normal bowel sounds Extremities: no cyanosis Hosp A/P - Plan DVT proph w/lovenox Acute on chronic systolic/diastolic HF - improving HTN urgency - BP better ?NSTEMI CAD s/p CABG SUKHI on CKD 4 Metabolic acidosis Hypothyroidism Mod MR h/o SLE PLAN: Cont ASA/Coreg Cont Lasix Cont fluid restriction No ACEI/ARB/Aldactone due to CKD Cont Clonidine AM labs [facility] at dc Cardiac Cath if Cr <2.5 - Consult Nephrology AM labs
[2020-02-05] MEDS: Polyethylene Glycol 3350 17 GM Packet PO SCH (20:35)
[2020-02-06 04:24] LABS: #Eosinphils 0.1 thou/uL (0.0-0.7); #Lymphocytes 1.7 thou/uL (1.20-3.40); #Monocytes 0.7 thou/uL (0.11-0.59); #Neutrophils 3.9 thou/uL (1.40-6.50); %Basophils 0.5 % (0.0-1.0); %Eosinophils 1.4 % (0.0-10.0); %Lymphocytes 26.8 % (21.0-51.0); %Monocytes 10.6 % (0.0-10.0); %Neutrophils 60.7 % (42.0-75.0); Hemoglobin 8.8 g/dL (12.0-16.0); Mean Corpuscular HGB CONC 30.1 g/dL (32.0-36.0); Mean Corpuscular Hemoglobin 27.8 pg (27.0-31.0); Mean Corpuscular Volume 92.4 fL (78.0-98.0); Mean Platelet Volume 9.3 fL (7.4-10.4); Platelet Count 191 thou/uL (130-400); RBC Distribution Width 13.6 % (11.5-14.5); Red Blood Cell (RBC) Count 3.16 mill/uL (4.20-5.40); White Blood Cell (WBC) Count 6.4 thou/uL (4.8-10.8)
[2020-02-06 04:42] LABS: Anion Gap 15 mmol/L (10-20); BUN (Urea Nitrogen) 68 mg/dL (9.8-20.1); Calc. Creatinine Clearance 16 mL/min (70-130); Calcium 7.9 mg/dL (7.8-10.44); Carbon Dioxide 20 mmol/L (23-31); Chloride 107 mmol/L (98-107); Estimated GFR-MDRD 17; Glucose 123 mg/dL (83-110); Potassium 4.4 mmol/L (3.5-5.1); Sodium 138 mmol/L (136-145)
[2020-02-06] MEDS: Levothyroxine Sodium 25 MCG TAB PO SCH (06:27)
[2020-02-06] MEDS: Furosemide 40 MG TAB PO SCH (09:04)
[2020-02-06] MEDS: Carvedilol 25 MG TAB PO SCH ×2 (09:05→16:45)
[2020-02-06] MEDS: cloNIDine 0.2 MG TAB PO SCH ×2 (09:05→21:11)
[2020-02-06] MEDS: Aspirin Chewable 81 MG TAB PO SCH (09:05)
[2020-02-06] MEDS: Enoxaparin Sodium 30 MG/0.3 ML SYRINGE SC SCH (09:05)
[2020-02-06] MEDS: Atorvastatin Calcium 20 MG TAB PO SCH (09:05)
[2020-02-06] MEDS: hydrALAZINE 25 MG TAB PO SCH ×3 (09:06→21:12)
[2020-02-06] MEDS: Escitalopram Oxalate 10 mg Tablet PO SCH (09:06)
[2020-02-06] MEDS: NIFEdipine XL 60 MG TAB PO SCH (09:07)
[2020-02-06] MEDS: Senokot S 8.6-50 MG TAB PO SCH ×2 (09:07→21:18)
--- NOTE | 2020-02-06 12:14 | PDOC.HOSPP ---
- Subjective Encounter Date: 02/06/20 Subjective: patient seen on f/u for d chf, patient denies sob chest pain palpitation or diaphoresis - Objective Vital Signs & Weight: Vital Signs (12 hours) Temp Pulse Resp BP BP Pulse Ox 02/06/20 09:05 132/62 02/06/20 09:00 97.7 F 68 16 143/63 H 96 02/06/20 04:00 98.4 F 65 18 119/56 L 98 02/06/20 03:46 96 Weight Weight 156 lb 14.4 oz I&O: 02/05/20 02/06/20 02/07/20 06:59 06:59 06:59 Intake Total 944 240 Output Total 450 225 Balance 494 15 Result Diagrams: 02/06/20 03:31 02/06/20 03:31 Additional Labs: Accuchecks 02/06/20 02/06/20 02/05/20 11:00 05:56 20:37 POC Glucose 232 H 139 H 89 02/05/20 02/05/20 16:53 11:02 POC Glucose 282 H 172 H Hospitalist ROS - Review of Systems All other systems reviewed; all pertinent +/- noted in HPI/Subj - Medication Medications: Active Medications Generic Name Dose Route Start Last Admin Trade Name Freq PRN Reason Stop Dose Admin Acetaminophen 650 mg 02/02/20 08:53 02/05/20 17:05 Tylenol PO 650 mg Q4H PRN Administration Headache/Fever or Mild Pain Aspirin 81 mg 02/02/20 09:00 02/06/20 09:05 Aspirin Chewable PO 81 mg DAILY DUC Administration Atorvastatin Calcium 20 mg 02/02/20 09:00 02/06/20 09:05 Lipitor PO 20 mg DAILY DUC Administration Carvedilol 25 mg 02/03/20 08:00 02/06/20 09:05 Coreg PO 25 mg BID-WM DUC Administration Clonidine 0.1 mg 02/02/20 09:00 02/06/20 09:05 Catapres PO 0.1 mg BID DUC Administration Enoxaparin Sodium 30 mg 02/03/20 09:00 02/06/20 09:05 Lovenox SC 30 mg 0900 DUC Administration Escitalopram Oxalate 5 mg 02/02/20 09:00 02/06/20 09:06 Lexapro PO 5 mg DAILY DUC Administration Furosemide 40 mg 02/05/20 07:30 02/06/20 09:04 Lasix PO 40 mg DAILY-AC DUC Administration Hydralazine HCl 100 mg 02/03/20 15:00 02/06/20 09:06 Apresoline PO 100 mg TID DUC Administration Insulin Human Regular 0 units 02/04/20 11:32 02/05/20 17:08 Humulin R SC 4 unit .MILD SLIDING SCALE PRN Administration Mild Correctional Scale Isosorbide Mononitrate 60 mg 02/02/20 09:00 02/06/20 09:06 Imdur PO 60 mg BID DUC Administration Levothyroxine Sodium 25 mcg 02/03/20 06:00 02/06/20 06:27 Synthroid PO 25 mcg 0600 DUC Administration Nifedipine 60 mg 02/06/20 09:00 02/06/20 09:07 Procardia Xl PO 60 mg DAILY DUC Administration Pantoprazole Sodium 40 mg 02/02/20 09:00 02/06/20 09:07 Protonix PO 40 mg DAILY DUC Administration Polyethylene Glycol 17 gm 02/04/20 21:00 02/05/20 20:35 Miralax PO 17 gm HS DUC Administration Senna/Docusate Sodium 2 tab 02/04/20 21:00 02/06/20 09:07 Senokot S PO 2 tab BID DUC Administration Sodium Chloride 10 ml 02/02/20 21:00 02/06/20 09:07 Flush - Normal Saline IVF 10 ml Q12HR DUC Administration - Exam Eye: PERRL, anicteric sclera ENT: normocephalic atraumatic, no oropharyngeal lesions Neck: supple, symmetric, no JVD Heart: RRR, no murmur, no gallops Respiratory: CTAB, no wheezes, no rales Gastrointestinal: soft, non-tender, non-distended, normal bowel sounds Extremities: no cyanosis, no clubbing Skin: normal turgor, no lesions Neurological: cranial nerve grossly intact, normal sensation to touch, no weakness Musculoskeletal: normal tone, normal strength Psychiatric: normal affect, normal behavior Hosp A/P - Plan decompensated congestive heart failure hypertension dm hypothyroidism cad s/p cabg ysabel over chronic kd 4 h/o sle plan continue with asa and coreg, unable to add acei/arb due to ysabel continue diuresis - monitor u/o and cr values cont fluid restriction [facility] at d/c possible [facility] this week if creatinine below 2.9 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
[2020-02-06] MEDS: Insulin Regular 300 UNITS/3 ML VIAL SC PRN (12:55)
--- NOTE | 2020-02-06 13:27 | PRG ---
DATE OF SERVICE: 02/06/2020 SUBJECTIVE: Patient was seen and examined at bedside and overnight events noted. Patient denies any shortness of breath or chest pain or palpitation. No history of nausea or vomiting or diarrhea or fever or chills or cramps. OBJECTIVE: GENERAL: This is an elderly female, in no apparent distress. VITAL SIGNS: Temperature 97.9. Heart rate 62. Respiratory rate 16. Blood pressure 137/60. HEENT: Atraumatic, normocephalic. Oral mucosa is moist NECK: Supple. CARDIOVASCULAR: S1, S2 heard. Rate and rhythm regular. RESPIRATORY: Clear to auscultation. GASTROINTESTINAL: Abdomen is soft. MUSCULOSKELETAL: No tenderness. No edema. DERMATOLOGIC: No skin rash. NEUROLOGIC: Alert and awake and oriented X3. No focal neurologic deficits. Moving all the extremities. PSYCHIATRIC: Mood and affect normal. LABORATORY DATA: Potassium 4.4, BUN is 68, creatinine is 3.1. ASSESSMENT AND PLAN: 1. Acute kidney injury on chronic kidney disease stage 4 with slight increase in creatinine today. Agree with reducing diuretic dose. 2. Acidosis. 3. Cardiorenal syndrome. 4. Hypertension. 5. Chronic anemia. Continue to monitor. Job ID: [id number]
--- NOTE | 2020-02-06 13:55 | PDOC.CPN ---
- Subjective Date: 02/06/20 Time: 13:56 Interval history: The pt seen and examined. No overnight events. No cardiac complaints - Objective Allergies/Adverse Reactions: Allergies Allergy/AdvReac Type Severity Reaction Status Date / Time No Known Allergies Allergy Verified 11/29/19 09:15 Visit Medications: Current Medications Acetaminophen (Tylenol) 650 mg PO Q4H PRN PRN Reason: Headache/Fever or Mild Pain Last Admin: 02/05/20 17:05 Dose: 650 mg Albuterol/Ipratropium (Duoneb) 3 ml NEB [id number] PRN PRN Reason: SOB &/or Wheezing Aspirin (Aspirin Chewable) 81 mg PO DAILY [facility] Last Admin: 02/06/20 09:05 Dose: 81 mg Atorvastatin Calcium (Lipitor) 20 mg PO DAILY [facility] Last Admin: 02/06/20 09:05 Dose: 20 mg Carvedilol (Coreg) 25 mg PO BID-[facility] Last Admin: 02/06/20 09:05 Dose: 25 mg Clonidine (Catapres) 0.1 mg PO BID [facility] Last Admin: 02/06/20 09:05 Dose: 0.1 mg Clonidine (Catapres) 0.1 mg PO Q4H PRN PRN Reason: SBP Greater Than 180 Dextrose/Water (Dextrose 50%) 25 gm SLOW IVP PRN PRN PRN Reason: Hypoglycemia Enoxaparin Sodium (Lovenox) 30 mg SC 0900 [facility] Last Admin: 02/06/20 09:05 Dose: 30 mg Escitalopram Oxalate (Lexapro) 5 mg PO DAILY [facility] Last Admin: 02/06/20 09:06 Dose: 5 mg Furosemide (Lasix) 40 mg PO DAILY-AC [facility] Last Admin: 02/06/20 09:04 Dose: 40 mg Glucagon (Glucagon) 1 mg IM PRN PRN PRN Reason: Hypoglycemia Hydralazine HCl (Apresoline) 100 mg PO TID [facility] Last Admin: 02/06/20 09:06 Dose: 100 mg Dextrose/Water (D5w) 1,000 mls @ 0 mls/hr IV .Q0M PRN PRN Reason: Hypoglycemia Insulin Human Regular (Humulin R) 0 units SC .MILD SLIDING SCALE PRN PRN Reason: Mild Correctional Scale Last Admin: 02/06/20 12:55 Dose: 3 unit Insulin Human Regular (Humulin R) 0 units SC .BEDTIME SLIDING SC PRN PRN Reason: Bedtime Correctional Scale Isosorbide Mononitrate (Imdur) 60 mg PO BID [facility] Last Admin: 02/06/20 09:06 Dose: 60 mg Levothyroxine Sodium (Synthroid) 25 mcg PO 0600 [facility] Last Admin: 02/06/20 06:27 Dose: 25 mcg Nifedipine (Procardia Xl) 60 mg PO DAILY [facility] Last Admin: 02/06/20 09:07 Dose: 60 mg Pantoprazole Sodium (Protonix) 40 mg PO DAILY [facility] Last Admin: 02/06/20 09:07 Dose: 40 mg Polyethylene Glycol (Miralax) 17 gm PO HS [facility] Last Admin: 02/05/20 20:35 Dose: 17 gm Senna/Docusate Sodium (Senokot S) 2 tab PO BID [facility] Last Admin: 02/06/20 09:07 Dose: 2 tab Sodium Chloride (Flush - Normal Saline) 10 ml IVF Q12HR [facility] Last Admin: 02/06/20 09:07 Dose: 10 ml Sodium Chloride (Flush - Normal Saline) 10 ml IVF PRN PRN PRN Reason: Saline Flush Vital Signs & Weight: Vital Signs Temp Pulse Pulse Pulse Pulse Resp BP 02/06/20 11:40 97.9 F 62 16 02/06/20 10:27 62 67 66 02/06/20 09:05 132/62 02/06/20 09:00 97.7 F 68 16 02/06/20 04:00 98.4 F 65 18 02/06/20 03:46 BP BP BP BP Pulse Ox 02/06/20 11:40 137/60 97 02/06/20 10:27 123/60 120/56 L 134/63 02/06/20 09:05 02/06/20 09:00 143/63 H 96 02/06/20 04:00 119/56 L 98 02/06/20 03:46 96 Weight 156 lb 14.4 oz - Physical Exam General: alert & oriented x3 HEENT: mucus membranes moist Neck: supple neck Cardiac: regular rate and rhythm, S1/S2 Lungs: decreased breath sounds Extremities: no edema - Labs Result Diagrams: 02/06/20 03:31 02/06/20 03:31 Troponin/CKMB CK-MB (CK-2) 4.6 ng/mL (0-6.6) 02/03/20 03:54 Troponin I 2.256 ng/mL (< 0.028) H* 02/03/20 03:54 - Telemetry Sinus rhythms and dysrhythmias: sinus rhythm - Assessment/Plan Assessment/Plan: 1. 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 HTN - will resume Nifedipine 60mg qd; may increase to 90mg 3. 3V CAD with hx of cath in 2013 with 20% stenosis in prox LAD, 70% in apical LAD, 60% in ramus, 60% in mid Lt Cx, 20% in prox and mid RCA, and 50% in posterolateral and posterior RCA with medical tx only - Plan for cardiac cath next wk if Cr <2.5; On ASA, coreg, and Statin 4. SUKHI on CKD 4 - managed by nephrology service 5. HLD - 6. Hypothyroidism - 7. DM type 2 8. Lupus * Echo on 02/02/2020 with EF 20-25%, grade I dd, mild LAE, mild MR and TR * Dr Velasco's pt
[2020-02-06] MEDS: Polyethylene Glycol 3350 17 GM Packet PO SCH (21:13)
[2020-02-07 04:14] LABS: #Eosinphils 0.1 thou/uL (0.0-0.7); #Lymphocytes 1.4 thou/uL (1.20-3.40); #Monocytes 0.5 thou/uL (0.11-0.59); #Neutrophils 3.3 thou/uL (1.40-6.50); %Basophils 0.5 % (0.0-1.0); %Eosinophils 2.2 % (0.0-10.0); %Lymphocytes 26.3 % (21.0-51.0); %Monocytes 9.4 % (0.0-10.0); %Neutrophils 61.6 % (42.0-75.0); Hemoglobin 9.1 g/dL (12.0-16.0); Mean Corpuscular HGB CONC 31.3 g/dL (32.0-36.0); Mean Corpuscular Hemoglobin 28.8 pg (27.0-31.0); Mean Platelet Volume 9.1 fL (7.4-10.4); Platelet Count 181 thou/uL (130-400); RBC Distribution Width 13.4 % (11.5-14.5); Red Blood Cell (RBC) Count 3.17 mill/uL (4.20-5.40); White Blood Cell (WBC) Count 5.4 thou/uL (4.8-10.8)
[2020-02-07 04:33] LABS: Anion Gap 15 mmol/L (10-20); BUN (Urea Nitrogen) 71 mg/dL (9.8-20.1); Calc. Creatinine Clearance 16 mL/min (70-130); Calcium 8.4 mg/dL (7.8-10.44); Carbon Dioxide 19 mmol/L (23-31); Chloride 105 mmol/L (98-107); Estimated GFR-MDRD 17; Glucose 122 mg/dL (83-110); Potassium 4.2 mmol/L (3.5-5.1); Sodium 135 mmol/L (136-145)
[2020-02-07] MEDS: Levothyroxine Sodium 25 MCG TAB PO SCH (05:58)
[2020-02-07] MEDS ORDERED: Communication Order-Pharmacy FS SCH (07:15)
[2020-02-07] MEDS: cloNIDine 0.2 MG TAB PO SCH ×2 (09:13→20:13)
[2020-02-07] MEDS: hydrALAZINE 25 MG TAB PO SCH ×3 (09:15→20:13)
[2020-02-07] MEDS: Aspirin Chewable 81 MG TAB PO SCH (09:16)
[2020-02-07] MEDS: NIFEdipine XL 60 MG TAB PO SCH (09:16)
[2020-02-07] MEDS: Senokot S 8.6-50 MG TAB PO SCH ×2 (09:17→20:12)
[2020-02-07] MEDS: Atorvastatin Calcium 20 MG TAB PO SCH (09:17)
[2020-02-07] MEDS: Escitalopram Oxalate 10 mg Tablet PO SCH (09:17)
[2020-02-07] MEDS: Carvedilol 25 MG TAB PO SCH ×2 (09:18→16:22)
[2020-02-07] MEDS: Sodium Chloride 0.9% 1,000 ML IV SCH (09:18)
[2020-02-07] MEDS: Enoxaparin Sodium 30 MG/0.3 ML SYRINGE SC SCH (09:18)
[2020-02-07] MEDS: Insulin Regular 300 UNITS/3 ML VIAL SC PRN (12:04)
--- NOTE | 2020-02-07 12:20 | PRG ---
DATE OF SERVICE: 02/07/2020 SUBJECTIVE: An 79-year-old female, being seen for acute kidney injury. The patient denied any nausea, vomiting, or chest pain. OBJECTIVE: General: The patient is awake and alert. Vital Signs: Afebrile, pulse 66, breathing 16, and blood pressure 156/72. HEENT: Head normocephalic and atraumatic. Eyes intact, no ulcers. Nose intact, no ulcers. Ears intact, no ulcers. Neck: Supple. No JVD. Chest: Symmetrical and clear. Cardiovascular: Shows S1 and S2, no rub, no murmur. Gastrointestinal: Abdomen is soft, bowel sounds positive. Extremities: Show no edema or ulcers. Skin: Shows no rash or petechiae. Musculoskeletal: Shows no joint swelling or stiffness. Genitourinary: Shows no Carrera or CVA tenderness. Neurologic: Motor intact. Cranial nerves intact. LABORATORY DATA: Hemoglobin 9.1. Creatinine . ASSESSMENT AND PLAN: 1. Chronic kidney disease, stage 4, stable. 2. Hypertension, stable. 3. Anemia, stable. 4. Medications based on GFR appropriate. Job ID: [id number]
--- NOTE | 2020-02-07 18:22 | PDOC.HOSPP ---
- Subjective Encounter Date: 02/07/20 Encounter Time: 15:00 Subjective: Patient seen and examined for CHF. No CP/SOB. No new complaints. No overnight events - Objective Vital Signs & Weight: Vital Signs (12 hours) Temp Pulse Pulse Pulse Pulse Resp BP 02/07/20 15:55 97.5 F L 65 16 02/07/20 15:30 65 67 02/07/20 15:29 70 148/70 H 02/07/20 14:21 64 02/07/20 12:17 97.8 F 70 16 02/07/20 09:20 02/07/20 09:16 66 156/72 H 02/07/20 09:15 66 156/72 H 02/07/20 09:13 156/72 H 02/07/20 07:30 97.4 F L 66 16 BP BP BP BP Pulse Ox 02/07/20 15:55 158/72 H 98 02/07/20 15:30 158/72 H 154/72 H 02/07/20 15:29 02/07/20 14:21 150/67 H 02/07/20 12:17 148/70 H 96 02/07/20 09:20 100 02/07/20 09:16 02/07/20 09:15 02/07/20 09:13 02/07/20 07:30 156/72 H 100 Weight Weight 157 lb 3.2 oz I&O: 02/06/20 02/07/20 02/08/20 06:59 06:59 06:59 Intake Total 1366 Output Total 785 Balance 581 Result Diagrams: 02/07/20 04:02 02/07/20 04:02 Additional Labs: Accuchecks 02/07/20 02/07/20 02/07/20 16:32 10:46 06:03 POC Glucose 72 167 H 134 H 02/06/20 20:30 POC Glucose 118 H EKG Reviewed by me: Yes (Tele SR) Hospitalist ROS - Review of Systems Respiratory: denies: cough, dry, shortness of breath, hemoptysis, SOB with excertion, pleuritic pain, sputum, wheezing, other Cardiovascular: denies: chest pain, palpitations, orthopnea, paroxysmal noc. dyspnea, edema, light headedness, other - Medication Medications: Active Medications Generic Name Dose Route Start Last Admin Trade Name Freq PRN Reason Stop Dose Admin Acetaminophen 650 mg 02/02/20 08:53 02/05/20 17:05 Tylenol PO 650 mg Q4H PRN Administration Headache/Fever or Mild Pain Aspirin 81 mg 02/02/20 09:00 02/07/20 09:16 Aspirin Chewable PO 81 mg DAILY DUC Administration Atorvastatin Calcium 20 mg 02/02/20 09:00 02/07/20 09:17 Lipitor PO 20 mg DAILY DUC Administration Carvedilol 25 mg 02/03/20 08:00 02/07/20 16:22 Coreg PO 25 mg BID- DUC Administration Clonidine 0.1 mg 02/02/20 09:00 02/07/20 09:13 Catapres PO 0.1 mg BID DUC Administration Enoxaparin Sodium 30 mg 02/03/20 09:00 02/07/20 09:18 Lovenox SC 02/07/20 21:00 30 mg 0900 DUC Administration Escitalopram Oxalate 5 mg 02/02/20 09:00 02/07/20 09:17 Lexapro PO 5 mg DAILY DUC Administration Hydralazine HCl 100 mg 02/03/20 15:00 02/07/20 15:29 Apresoline PO 100 mg TID DUC Administration Sodium Chloride 1,000 mls @ 50 mls/hr 02/07/20 07:15 02/07/20 09:18 Normal Saline 0.9% IV 02/08/20 06:00 1,000 mls .Q20H DUC Administration Insulin Human Regular 0 units 02/04/20 11:32 02/07/20 12:04 Humulin R SC 2 unit .MILD SLIDING SCALE PRN Administration Mild Correctional Scale Isosorbide Mononitrate 60 mg 02/02/20 09:00 02/07/20 09:18 Imdur PO 60 mg BID DUC Administration Levothyroxine Sodium 25 mcg 02/03/20 06:00 02/07/20 05:58 Synthroid PO 25 mcg 0600 DUC Administration Nifedipine 60 mg 02/06/20 09:00 02/07/20 09:16 Procardia Xl PO 60 mg DAILY DUC Administration Pantoprazole Sodium 40 mg 02/02/20 09:00 02/07/20 09:18 Protonix PO 40 mg DAILY DUC Administration Polyethylene Glycol 17 gm 02/04/20 21:00 02/06/20 21:13 Miralax PO 17 gm HS DUC Administration Senna/Docusate Sodium 2 tab 02/04/20 21:00 02/07/20 09:17 Senokot S PO 2 tab BID DUC Administration Sodium Chloride 10 ml 02/02/20 21:00 02/07/20 09:19 Flush - Normal Saline IVF 10 ml Q12HR DUC Administration - Exam General Appearance: NAD Heart: RRR, no gallops Respiratory: no wheezes, no ronchi Gastrointestinal: non-tender, non-distended, normal bowel sounds Extremities: no cyanosis Neurological: no new deficit Hosp A/P - Plan DVT proph w/SCDs Acute on chronic systolic/diastolic HF HTN urgency ?NSTEMI CAD s/p CABG SUKHI on CKD 4 Metabolic acidosis Hypothyroidism Mod MR h/o SLE PLAN: Cont ASA/Coreg Cont Clonidine No ACEI/ARB/Aldactone due to CKD AM labs Lifevest at dc Cardiac Cath in AM AM labs
[2020-02-07] MEDS: Polyethylene Glycol 3350 17 GM Packet PO SCH (20:12)
[2020-02-08] MEDS: Sodium Chloride 0.9% 1,000 ML IV SCH (03:15)
[2020-02-08 04:10] LABS: #Eosinphils 0.1 thou/uL (0.0-0.7); #Lymphocytes 1.7 thou/uL (1.20-3.40); #Monocytes 0.6 thou/uL (0.11-0.59); #Neutrophils 3.3 thou/uL (1.40-6.50); %Basophils 0.6 % (0.0-1.0); %Eosinophils 1.9 % (0.0-10.0); %Lymphocytes 29.6 % (21.0-51.0); %Monocytes 10.5 % (0.0-10.0); %Neutrophils 57.3 % (42.0-75.0); Hemoglobin 8.7 g/dL (12.0-16.0); Mean Corpuscular HGB CONC 30.6 g/dL (32.0-36.0); Mean Corpuscular Hemoglobin 27.7 pg (27.0-31.0); Mean Corpuscular Volume 90.4 fL (78.0-98.0); Mean Platelet Volume 9.1 fL (7.4-10.4); Platelet Count 199 thou/uL (130-400); RBC Distribution Width 13.4 % (11.5-14.5); Red Blood Cell (RBC) Count 3.14 mill/uL (4.20-5.40); White Blood Cell (WBC) Count 5.7 thou/uL (4.8-10.8)
[2020-02-08 04:30] LABS: Anion Gap 14 mmol/L (10-20); BUN (Urea Nitrogen) 68 mg/dL (9.8-20.1); Calc. Creatinine Clearance 17 mL/min (70-130); Calcium 8.1 mg/dL (7.8-10.44); Carbon Dioxide 19 mmol/L (23-31); Chloride 109 mmol/L (98-107); Estimated GFR-MDRD 19; Glucose 102 mg/dL (83-110); Potassium 4.2 mmol/L (3.5-5.1); Sodium 138 mmol/L (136-145)
[2020-02-08] MEDS: Levothyroxine Sodium 25 MCG TAB PO SCH (05:38)
[2020-02-08] MEDS ORDERED: Sodium Chloride 0.9% 1,000 ML IV SCH ×2 (06:00→08:12)
[2020-02-08] MEDS ORDERED: Heparin 10,000 UNITS/1 ML VIAL ONE (06:38)
[2020-02-08] MEDS: NIFEdipine XL 60 MG TAB PO SCH (06:51)
[2020-02-08] MEDS: Atorvastatin Calcium 20 MG TAB PO SCH (06:52)
[2020-02-08] MEDS: Carvedilol 25 MG TAB PO SCH ×2 (06:52→16:24)
[2020-02-08] MEDS: hydrALAZINE 25 MG TAB PO SCH ×3 (06:53→20:47)
[2020-02-08] MEDS: Escitalopram Oxalate 10 mg Tablet PO SCH (06:54)
[2020-02-08] MEDS: Aspirin Chewable 81 MG TAB PO SCH (06:54)
[2020-02-08] MEDS: cloNIDine 0.2 MG TAB PO SCH ×2 (07:08→20:46)
[2020-02-08] MEDS ORDERED: Midazolam HCl 2 mg/2 ml Vial ONE (07:21)
[2020-02-08] MEDS ORDERED: Fentanyl 100 MCG/2 ML VIAL ONE (07:21)
[2020-02-08] MEDS ORDERED: Protamine Sulfate 50 MG/5 ML VIAL ONE (07:45)
[2020-02-08] MEDS ORDERED: Acetaminophen/Codeine 30-300mg Tablet PO PRN ×2 (08:11)
[2020-02-08] MEDS ORDERED: Sodium Chloride 0.9% 200 ML IV PRN (08:11)
[2020-02-08] MEDS ORDERED: Nitroglycerin 0.4 MG TAB (25 Tab Bottle) SL PRN (08:11)
[2020-02-08] MEDS ORDERED: Iopamidol 370 76% 100 ML VIAL ONE (09:12)
[2020-02-08] MEDS ORDERED: EPOETIN ALFA-EPBX (ESRD) 10,000 UNIT/ML VIAL SC SCH (10:45)
[2020-02-08] MEDS: Senokot S 8.6-50 MG TAB PO SCH ×2 (11:08→20:48)
[2020-02-08] MEDS: Torsemide 20 MG TAB PO SCH (11:08)
--- NOTE | 2020-02-08 11:23 | PRG ---
DATE OF SERVICE: 02/08/2020 SUBJECTIVE: An 79-year-old female, being seen for acute kidney injury. The patient denies any nausea, vomiting, or chest pain. OBJECTIVE: GENERAL: The patient is awake and alert. VITAL SIGNS: Afebrile, pulse 75, breathing at 16, blood pressure 135/63. HEENT: Head normocephalic and atraumatic. Eyes intact, no ulcers. Nose intact, no ulcers. Ears intact, no ulcers. NECK: Supple. No JVD. CHEST: Symmetrical and clear. CARDIOVASCULAR: Shows S1 and S2, no rub, no murmur. GASTROINTESTINAL: Abdomen is soft, bowel sounds positive. EXTREMITIES: Show no edema or ulcers. SKIN: Shows no rash or petechiae. MUSCULOSKELETAL: Shows no joint swelling or stiffness. GENITOURINARY: Shows no Carrera or CVA tenderness. NEUROLOGIC: Motor intact. Cranial nerves intact. LABORATORY DATA: Reviewed. ASSESSMENT AND RECOMMENDATIONS: 1. Chronic kidney disease, stage 4, stable. 2. Hypertension, stable. 3. Anemia, stable. 4. Medication based on GFR, appropriate. 5. No indication for dialysis. 6. For anemia, we would recommend starting Epogen 10,000 units every 2 weeks and follow Hematology as an outpatient. Job ID: [id number]
[2020-02-08] MEDS: Acetaminophen 325 MG TAB PO PRN (11:36)
[2020-02-08] MEDS: Insulin Regular 300 UNITS/3 ML VIAL SC PRN (16:31)
--- NOTE | 2020-02-08 17:06 | PDOC.HOSPP ---
- Subjective Encounter Date: 02/08/20 Encounter Time: 14:00 Subjective: Patient seen and examined for CHF. s/p Cath. No CP. No new complaints. No overnight events - Objective Vital Signs & Weight: Vital Signs (12 hours) Temp Pulse Resp BP BP BP Pulse Ox 02/08/20 16:20 68 150/68 H 02/08/20 16:00 98 F 68 16 150/68 H 02/08/20 15:00 98.6 F 70 20 143/65 H 97 02/08/20 12:00 98 F 70 16 144/67 H 02/08/20 08:20 68 16 158/74 H 98 02/08/20 08:15 98 F 68 16 158/74 H 158/74 H 02/08/20 08:00 98.0 F 75 16 158/73 H 96 02/08/20 07:08 137/63 02/08/20 07:02 96 02/08/20 06:53 69 02/08/20 06:51 69 Weight Weight 158 lb I&O: 02/07/20 02/08/20 02/09/20 06:59 06:59 06:59 Intake Total 1366 1607 Output Total 785 900 Balance 581 707 Result Diagrams: 02/08/20 03:51 02/08/20 03:51 Additional Labs: Accuchecks 02/08/20 02/08/20 02/07/20 10:24 06:27 20:29 POC Glucose 195 H 138 H 179 H EKG Reviewed by me: Yes (Tele SR) Hospitalist ROS - Review of Systems Respiratory: denies: cough, dry, shortness of breath, hemoptysis, SOB with excertion, pleuritic pain, sputum, wheezing, other Cardiovascular: denies: chest pain, palpitations, orthopnea, paroxysmal noc. dyspnea, edema, light headedness, other Gastrointestinal: denies: nausea, vomiting, abdominal pain, diarrhea, constipation, melena, hematochezia, other - Medication Medications: Active Medications Generic Name Dose Route Start Last Admin Trade Name Freq PRN Reason Stop Dose Admin Acetaminophen 650 mg 02/02/20 08:53 02/08/20 11:36 Tylenol PO 650 mg Q4H PRN Administration Headache/Fever or Mild Pain Aspirin 81 mg 02/02/20 09:00 02/08/20 06:54 Aspirin Chewable PO 81 mg DAILY DUC Administration Atorvastatin Calcium 20 mg 02/02/20 09:00 02/08/20 06:52 Lipitor PO 20 mg DAILY DUC Administration Carvedilol 25 mg 02/03/20 08:00 02/08/20 16:24 Coreg PO 25 mg BID-WM DUC Administration Clonidine 0.1 mg 02/02/20 09:00 02/08/20 07:08 Catapres PO 0.1 mg BID DUC Administration Epoetin Fausto-epbx 10,000 unit 02/08/20 10:45 02/08/20 11:36 Retacrit SC 10,000 unit Q7D DUC Administration Escitalopram Oxalate 5 mg 02/02/20 09:00 02/08/20 06:54 Lexapro PO 5 mg DAILY DUC Administration Hydralazine HCl 100 mg 02/03/20 15:00 02/08/20 16:20 Apresoline PO 100 mg TID DUC Administration Insulin Human Regular 0 units 02/04/20 11:32 02/08/20 16:31 Humulin R SC 2 unit .MILD SLIDING SCALE PRN Administration Mild Correctional Scale Isosorbide Mononitrate 60 mg 02/02/20 09:00 02/08/20 06:54 Imdur PO 60 mg BID DUC Administration Levothyroxine Sodium 25 mcg 02/03/20 06:00 02/08/20 05:38 Synthroid PO 25 mcg 0600 DUC Administration Nifedipine 60 mg 02/06/20 09:00 02/08/20 06:51 Procardia Xl PO 60 mg DAILY DUC Administration Pantoprazole Sodium 40 mg 02/02/20 09:00 02/08/20 06:51 Protonix PO 40 mg DAILY DUC Administration Polyethylene Glycol 17 gm 02/04/20 21:00 02/07/20 20:12 Miralax PO 17 gm HS DUC Administration Senna/Docusate Sodium 2 tab 02/04/20 21:00 02/08/20 11:08 Senokot S PO 2 tab BID DUC Administration Sodium Chloride 10 ml 02/02/20 21:00 02/08/20 07:10 Flush - Normal Saline IVF Not Given Q12HR DUC Torsemide 20 mg 02/08/20 09:00 02/08/20 11:08 Demadex PO 20 mg DAILY DUC Administration - Exam General Appearance: NAD Neck: supple, no JVD Heart: RRR, no gallops Respiratory: no wheezes, no rales Gastrointestinal: soft, non-tender, non-distended Extremities: no cyanosis Neurological: no new deficit Hosp A/P - Plan DVT proph w/SCDs Acute on chronic systolic/diastolic HF HTN urgency ?NSTEMI CAD s/p CABG SUKHI on CKD 4 Metabolic acidosis Hypothyroidism Mod MR h/o SLE PLAN: s/p Cath Cont ASA/Coreg/Clonidine No ACEI/ARB/Aldactone due to CKD AM labs Lifevest attempted - Pt unable to follow instruction
[2020-02-08] MEDS: Polyethylene Glycol 3350 17 GM Packet PO SCH (20:47)
[2020-02-09 04:18] LABS: #Eosinphils 0.1 thou/uL (0.0-0.7); #Lymphocytes 1.8 thou/uL (1.20-3.40); #Monocytes 0.6 thou/uL (0.11-0.59); #Neutrophils 3.2 thou/uL (1.40-6.50); %Basophils 0.8 % (0.0-1.0); %Eosinophils 1.8 % (0.0-10.0); %Lymphocytes 31.3 % (21.0-51.0); %Monocytes 9.9 % (0.0-10.0); %Neutrophils 56.2 % (42.0-75.0); Hemoglobin 8.7 g/dL (12.0-16.0); Mean Corpuscular HGB CONC 31.8 g/dL (32.0-36.0); Mean Corpuscular Hemoglobin 28.9 pg (27.0-31.0); Mean Corpuscular Volume 90.9 fL (78.0-98.0); Mean Platelet Volume 8.5 fL (7.4-10.4); Platelet Count 196 thou/uL (130-400); RBC Distribution Width 13.2 % (11.5-14.5); Red Blood Cell (RBC) Count 3.02 mill/uL (4.20-5.40); White Blood Cell (WBC) Count 5.6 thou/uL (4.8-10.8)
[2020-02-09 04:36] LABS: Anion Gap 13 mmol/L (10-20); BUN (Urea Nitrogen) 63 mg/dL (9.8-20.1); Calc. Creatinine Clearance 18 mL/min (70-130); Calcium 8.1 mg/dL (7.8-10.44); Carbon Dioxide 18 mmol/L (23-31); Chloride 110 mmol/L (98-107); Estimated GFR-MDRD 19; Glucose 104 mg/dL (83-110); Potassium 4.4 mmol/L (3.5-5.1); Sodium 137 mmol/L (136-145)
[2020-02-09] MEDS: Levothyroxine Sodium 25 MCG TAB PO SCH (05:08)
[2020-02-09] MEDS: hydrALAZINE 25 MG TAB PO SCH ×2 (08:47→15:31)
[2020-02-09] MEDS: Aspirin Chewable 81 MG TAB PO SCH (08:47)
[2020-02-09] MEDS: Senokot S 8.6-50 MG TAB PO SCH (08:48)
[2020-02-09] MEDS: NIFEdipine XL 60 MG TAB PO SCH (08:48)
[2020-02-09] MEDS: cloNIDine 0.2 MG TAB PO SCH (08:48)
[2020-02-09] MEDS: Carvedilol 25 MG TAB PO SCH ×2 (08:48→17:46)
[2020-02-09] MEDS: Atorvastatin Calcium 20 MG TAB PO SCH (08:49)
[2020-02-09] MEDS: Escitalopram Oxalate 10 mg Tablet PO SCH (08:49)
[2020-02-09] MEDS: Torsemide 20 MG TAB PO SCH (08:52)
--- NOTE | 2020-02-09 10:51 | PDOC.HOSPP ---
- Subjective Encounter Date: 02/09/20 Encounter Time: 08:00 Subjective: pt is not able to use life vest, daughter was bedside, Patient seen and examined. No new complaints. No overnight events - Objective Vital Signs & Weight: Vital Signs (12 hours) Temp Pulse Resp BP BP Pulse Ox 02/09/20 08:48 75 159/74 H 02/09/20 08:47 75 159/74 H 02/09/20 07:40 97.1 F L 75 16 159/74 H 97 02/09/20 03:18 98.7 F 70 18 154/68 H 96 02/08/20 23:32 77 16 Weight Weight 161 lb 3.2 oz I&O: 02/08/20 02/09/20 02/10/20 06:59 06:59 06:59 Intake Total 1607 1720 Output Total 900 300 Balance 707 1420 Result Diagrams: 02/09/20 03:53 02/09/20 03:53 Additional Labs: Accuchecks 02/09/20 02/08/20 02/08/20 05:39 20:34 16:33 POC Glucose 120 H 84 155 H 02/08/20 06:27 POC Glucose 138 H Radiology Reviewed by me: Yes EKG Reviewed by me: Yes Hospitalist ROS - Review of Systems Eyes: denies: pain, vision change, conjunctivae inflammation, eyelid inflammation, redness, other ENT: denies: ear pain, ear discharge, nose pain, nose discharge, nose congestion , mouth pain, mouth swelling, throat pain, throat swelling, other Respiratory: denies: cough, dry, shortness of breath, hemoptysis, SOB with excertion, pleuritic pain, sputum, wheezing, other Cardiovascular: denies: chest pain, palpitations, orthopnea, paroxysmal noc. dyspnea, edema, light headedness, other Gastrointestinal: denies: nausea, vomiting, abdominal pain, diarrhea, constipation, melena, hematochezia, other Genitourinary: denies: dysuria, frequency, incontinence, hematuria, retention, other Musculoskeletal: denies: neck pain, shoulder pain, arm pain, back pain, hand pain, leg pain, foot pain, other - Medication Medications: Active Medications Generic Name Dose Route Start Last Admin Trade Name Freq PRN Reason Stop Dose Admin Acetaminophen 650 mg 02/02/20 08:53 02/08/20 11:36 Tylenol PO 650 mg Q4H PRN Administration Headache/Fever or Mild Pain Aspirin 81 mg 02/02/20 09:00 02/09/20 08:47 Aspirin Chewable PO 81 mg DAILY DUC Administration Atorvastatin Calcium 20 mg 02/02/20 09:00 02/09/20 08:49 Lipitor PO 20 mg DAILY DUC Administration Carvedilol 25 mg 02/03/20 08:00 02/09/20 08:48 Coreg PO 25 mg BID-WM DUC Administration Clonidine 0.1 mg 02/02/20 09:00 02/09/20 08:48 Catapres PO 0.1 mg BID DUC Administration Epoetin Fausto-epbx 10,000 unit 02/08/20 10:45 02/08/20 11:36 Retacrit SC 10,000 unit Q7D DUC Administration Escitalopram Oxalate 5 mg 02/02/20 09:00 02/09/20 08:49 Lexapro PO 5 mg DAILY DUC Administration Hydralazine HCl 100 mg 02/03/20 15:00 02/09/20 08:47 Apresoline PO 100 mg TID DUC Administration Insulin Human Regular 0 units 02/04/20 11:32 02/08/20 16:31 Humulin R SC 2 unit .MILD SLIDING SCALE PRN Administration Mild Correctional Scale Isosorbide Mononitrate 60 mg 02/02/20 09:00 02/09/20 08:50 Imdur PO 60 mg BID DUC Administration Levothyroxine Sodium 25 mcg 02/03/20 06:00 02/09/20 05:08 Synthroid PO 25 mcg 0600 DUC Administration Nifedipine 60 mg 02/06/20 09:00 02/09/20 08:48 Procardia Xl PO 60 mg DAILY DUC Administration Pantoprazole Sodium 40 mg 02/02/20 09:00 02/09/20 08:50 Protonix PO 40 mg DAILY DUC Administration Polyethylene Glycol 17 gm 02/04/20 21:00 02/08/20 20:47 Miralax PO Not Given HS DUC Senna/Docusate Sodium 2 tab 02/04/20 21:00 02/09/20 08:48 Senokot S PO 2 tab BID DUC Administration Sodium Chloride 10 ml 02/02/20 21:00 02/09/20 08:51 Flush - Normal Saline IVF 10 ml Q12HR DUC Administration Torsemide 20 mg 02/08/20 09:00 02/09/20 08:52 Demadex PO 20 mg DAILY DUC Administration - Exam General Appearance: NAD, awake alert Eye: PERRL, anicteric sclera ENT: normocephalic atraumatic, no oropharyngeal lesions Neck: supple, symmetric, no JVD Heart: RRR, no gallops, no rubs, murmur present, II/IV Respiratory: CTAB, no wheezes, no rales, no ronchi Gastrointestinal: soft, non-tender, non-distended, normal bowel sounds Extremities: no cyanosis, no clubbing, no edema Skin: normal turgor, no lesions Neurological: no focal deficits Musculoskeletal: normal tone, normal strength Psychiatric: normal affect, normal behavior Hosp A/P (1) NSTEMI (non-ST elevated myocardial infarction) Code(s): I21.4 - NON-ST ELEVATION (NSTEMI) MYOCARDIAL INFARCTION Status: Acute (2) Acute on chronic systolic (congestive) heart failure Code(s): I50.23 - ACUTE ON CHRONIC SYSTOLIC (CONGESTIVE) HEART FAILURE Status : Acute (3) Anemia, chronic disease Code(s): D63.8 - ANEMIA IN OTHER CHRONIC DISEASES CLASSIFIED ELSEWHERE Status : Chronic (4) Hypertension, uncontrolled Code(s): I10 - ESSENTIAL (PRIMARY) HYPERTENSION Status: Chronic (5) CAD (coronary artery disease) Code(s): I25.10 - ATHSCL HEART DISEASE OF [place] CORONARY ARTERY W/O ANG PCTRS Status: Acute (6) Diabetes type 2, controlled Code(s): E11.9 - TYPE 2 DIABETES MELLITUS WITHOUT COMPLICATIONS Status: Acute (7) Moderate mitral regurgitation Code(s): I34.0 - NONRHEUMATIC MITRAL (VALVE) INSUFFICIENCY Status: Chronic (8) Cardiomyopathy Code(s): I42.9 - CARDIOMYOPATHY, UNSPECIFIED Status: Chronic (9) CKD (chronic kidney disease) stage 4, GFR 15-29 ml/min Code(s): N18.4 - CHRONIC KIDNEY DISEASE, STAGE 4 (SEVERE) Status: Chronic - Plan old records reviewed/req, plan discussed w/ family pt is not on acei or arb due to ckd on goal directed therapy, life vest option is not possible with pt, will ask cardiology to consider aicd if appropriate medication reviewed, symptomatic treatment, supportive care
--- NOTE | 2020-02-09 11:20 | PRG ---
DATE OF SERVICE: 02/09/2020 SUBJECTIVE: This is an 79-year-old female, being seen for acute kidney injury. The patient denied nausea, vomiting, or chest pain. OBJECTIVE: General: The patient is awake and alert. Vital Signs: Afebrile, pulse 79, breathing at 16, blood pressure 159/74. HEENT: Head normocephalic and atraumatic. Eyes intact, no ulcers. Nose intact, no ulcers. Ears intact, no ulcers. Neck: Supple. No JVD. Chest: Symmetrical and clear. Cardiovascular: Shows S1 and S2, no rub, no murmur. Gastrointestinal: Abdomen is soft, bowel sounds positive. Extremities: Show no edema or ulcers. Skin: Shows no rash or petechiae. Musculoskeletal: Shows no joint swelling or stiffness. Genitourinary: Shows no Carrera or CVA tenderness. Neurologic: Motor intact. Cranial nerves intact. LABORATORY DATA: Labs show hemoglobin 8.7, creatinine 2.8. ASSESSMENT AND PLAN: 1. Acute kidney injury, chronic kidney disease stage 4, stable. 2. Hypertension, stable. 3. Anemia, stable. 4. Medication based on GFR appropriate. 5. No indication for dialysis. Job ID: [id number]
[2020-02-09 12:53] VITALS: BMI 26.0
[2020-02-09] MEDS ORDERED: Clopidogrel Bisulfate 300 MG TAB PO SCH (14:45)
[2020-02-09] MEDS: Insulin Regular 300 UNITS/3 ML VIAL SC PRN (17:45)
--- NOTE | 2020-02-09 18:06 | DIS ---
DATE OF ADMISSION: 02/02/2020 DATE OF DISCHARGE: 02/09/2020 PRIMARY CARE PHYSICIAN: DISCHARGE DISPOSITION: Home with Home Health. PRIMARY DISCHARGE DIAGNOSES: 1. Acute on chronic systolic congestive heart failure. 2. Status post cardiac cath and found with 3-vessel coronary artery disease, [id number] myocardial infarction, moderate mitral regurgitation. SECONDARY DISCHARGE DIAGNOSES: 1. Hypertension. 2. Diabetes, type 2. 3. Anemia of renal disease. 4. Dyslipidemia. 5. Chronic systolic congestive heart failure. 6. Chronic kidney disease, stage 4. PRIMARY PROCEDURE/OPERATION: Cardiac catheterization was performed by Dr. Velasco and patient was found with 50% stenosis of proximal LAD, 70% stenosis in distal LAD, proximal stenosis of circumflex, mid RCA 50%, 70% stenosis of the ramus. In this way, patient was found with 3-vessel CAD and Cardiology recommended medical therapy. Radiological investigation. Echocardiography showed EF 20% to 25%. Moderate mitral regurgitation. Chest x-ray showed improvement in congestion. SIGNIFICANT LABORATORY DATA: WBC of 5.6, hemoglobin 8.7, and platelets 196. Sodium 137 and creatinine 2.82. Blood culture negative. DISCHARGE MEDICATIONS: 1. Aspirin 81 mg p.o. daily. 2. Lipitor 20 mg p.o. daily. 3. Calcitriol 0.25 mcg p.o. daily. 4. Clonidine 0.1 mg b.i.d. 5. Celexa 5 mg p.o. daily. 6. Hydroxychloroquine 300 mg p.o. daily. 7. Imdur ER 60 mg p.o. b.i.d. 8. Synthroid 25 mcg p.o. daily. 9. Procardia XL 90 mg p.o. daily. 10. Omeprazole 20 mg p.o. daily. 11. Torsemide 20 mg p.o. daily. 12. Coreg 25 mg p.o. b.i.d. 13. Plavix 75 mg p.o. daily. 14. Hydralazine 100 mg p.o. t.i.d. CONTRAINDICATION: Pt is not on ACEI or ARB due to CKD and risk for hyperkalemia so contraindicated. CODE STATUS: Full code. INPATIENT COLLEGE PRESIDENT: Nephrology was consulted while in the hospital. Cardiology was consulted while in the hospital. CASE RESULT PENDING ON DISCHARGE: None. ALLERGIES: NO KNOWN DRUG ALLERGY. DISCHARGE PLAN: Posthospital, patient will follow up with primary care physician on February 16, 2020, at 3:45 p.m. Patient will follow up with Dr. Velasco on March. HOSPITAL COURSE: An 79-year-old female, with the abovementioned medical problem , who was admitted by Dr. Frias. Please see his H and P for further details. Patient was presented for increasing shortness of breath. Patient has underlying history of lupus, congestive heart failure, CKD, hypertension, and diabetes. Patient was found with [id number] CA. Patient was evaluated by Nephrology for her renal insufficiency. Patient was evaluated by Cardiology and patient underwent cardiac catheterization, which showed 3-vessel CAD, but Cardiology recommended medical therapy. Patient was also having congestive heart failure exacerbation. Her EF was 20% to 25% based on echocardiography. Patient was diuresed well while in hospital and she was euvolemic. Echocardiography was obtained. Patient was observed for several days in the hospital and her renal function was stabilized. Before discharge, Cardiology recommended a LifeVest, but that was not able to arranged because patient was not able to use LifeVest and that is why Cardiology recommended that she would be okay without LifeVest and cleared her for discharge. Plavix was added during this admission. Patient was seen and examined at bedside today. All consultant rn cleared her for discharge. Patient is to follow up with Cardiology, Nephrology, and primary care physician. Job ID: [id number] [facility] [place] DIVISIONMike
[2020-02-09 18:41] VITALS: BP 145/65; TEMP 97.6
[2020-02-10] MEDS ORDERED: Clopidogrel Bisulfate 75 MG TAB PO SCH (09:00)
--- NOTE | 2020-02-12 11:53 | EKG ---
Test Reason : Blood Pressure : / mmHG Vent. Rate : 098 BPM Atrial Rate : 098 BPM P-R Int : 176 ms QRS Dur : 130 ms QT Int : 394 ms P-R-T Axes : 046 -39 060 degrees QTc Int : 503 ms Normal sinus rhythm Possible Left atrial enlargement Left axis deviation Left bundle branch block Abnormal ECG Confirmed by JIM LEE ([id number]), assistant production editor KEVIN ROMERO ([id number]) on 02/12/2020 11:53:39 AM Referred By: Confirmed By:JIM LEE
== END 2020-02-09 18:35 | disposition home health service (06) | DRG 280 ==
LOC: ERS 23:58 → 2NO 02-02 03:33
PROVIDERS: ADMIT Internal Medicine; ATTEND Internal Medicine
PROC: 4A023N7 Measurement of Cardiac Sampling and Pressure, Left Heart, Percutaneous Approach (ICD-10-PCS; principal; 2020-02-08)
PROC: B2111ZZ Fluoroscopy of Multiple Coronary Arteries using Low Osmolar Contrast (ICD-10-PCS; 2020-02-08)
PROC: B2161ZZ Fluoroscopy of Right and Left Heart using Low Osmolar Contrast (ICD-10-PCS; 2020-02-08)
DX: I13.0 Hypertensive heart and chronic kidney disease with heart failure and stage 1 through stage 4 chronic kidney disease, or unspecified chronic kidney disease (principal); I21.4 Non-ST elevation (NSTEMI) myocardial infarction; I50.43 Acute on chronic combined systolic (congestive) and diastolic (congestive) heart failure; N18.4 Chronic kidney disease, stage 4 (severe); I82.531 Chronic embolism and thrombosis of right popliteal vein; N17.9 Acute kidney failure, unspecified; E87.2 Acidosis; E78.5 Hyperlipidemia, unspecified; M32.9 Systemic lupus erythematosus, unspecified; E11.22 Type 2 diabetes mellitus with diabetic chronic kidney disease; E11.65 Type 2 diabetes mellitus with hyperglycemia; E78.00 Pure hypercholesterolemia, unspecified; E89.0 Postprocedural hypothyroidism; I25.10 Atherosclerotic heart disease of native coronary artery without angina pectoris; K21.9 Gastro-esophageal reflux disease without esophagitis; E66.9 Obesity, unspecified; I16.0 Hypertensive urgency; E11.69 Type 2 diabetes mellitus with other specified complication; D63.1 Anemia in chronic kidney disease; I42.9 Cardiomyopathy, unspecified; I34.0 Nonrheumatic mitral (valve) insufficiency; Z79.82 Long term (current) use of aspirin; Z79.890 Hormone replacement therapy; Z79.899 Other long term (current) drug therapy; Z68.26 Body mass index [BMI] 26.0-26.9, adult
CPT/HCPCS: 36415; 36416; 71045; 80048; 80053; 80061; 82553; 83605; 83735; 83880; 84484; 85025; 87040; 93005; 93010; 93306; 93454; 93798; 94640; 96365; 96367; 96374; 99152; J0456; J0696; J1644; J1650; J1815; J1940; J2250; J2720; J3010; J3490; J7050; J7620; Q5105; Q9967